=== PATIENT | male | born 1945 | race Caucasian/White ===

== ENCOUNTER 2016-05-29 14:11 | Inpatient (IN) | payer OTHER ==
[~2016-05-29] VITALS: Ht 167.6 cm; Wt 95.3 kg
[2016-05-29] MEDS ORDERED: MoRPHine SULFATE 10 MG/ML CARP/VIAL IV STA (14:49)
[2016-05-29] MEDS ORDERED: ONDANSETRON INJ 2 MG/ML 2 ML VIAL IV STA (14:49)
[2016-05-29] MEDS ORDERED: SODIUM CHLORIDE 0.9% 500ML 500 ML IV STA (14:49)
[2016-05-29] MEDS ORDERED: NITROGLYCERIN 0.4 MG SL PER TAB CHARGE SL PRN ×2 (15:00→18:15)
--- NOTE | 2016-05-29 15:23 | DIAGNOSTIC IMAGING REPORT ---
CHEST ONE VIEW PORTABLE CLINICAL HISTORY: Chest and epigastric pain. Hypertension. COMPARISON STUDY: No previous studies for comparison. FINDINGS: There are median sternotomy wires. This study is mildly compromised by motion artifact. Moderate enlargement of the cardiac silhouette is noted. There is no evidence of pulmonary edema. No lobar consolidation is present. IMPRESSION: 1. No acute findings identified. 2. Moderate cardiomegaly. Electronically signed by: Stanley Granados M.D. 05/29/2016 3:21 PM Dictated Date/Time: 05/29/2016 3:20 PM
[2016-05-29 15:33] LABS: ISTAT CREATININE 0.7 mg/dl (0.6-1.3); ISTAT HEMOGLOBIN 15.6 g/dl (14.0-18.0); ISTAT IONIZED CALCIUM 1.17 mmol/l (1.12-1.32)
[2016-05-29 15:56] LABS: HEMATOCRIT 44.9 % (42-52); MEAN CELL VOLUME 82.5 fL (80-100); MEAN CORPUSCULAR HEMOGLOBIN 28.3 pg (25-34); MEAN CORPUSCULAR HGB CONC 34.3 g/dl (32-36); MEAN PLATELET VOLUME 9.9 fL (7.4-10.4); PLATELET COUNT 203 K/uL (130-400); RED BLOOD COUNT 5.44 M/uL (4.7-6.1); WHITE BLOOD COUNT 17.62 K/uL (4.8-10.8)
[2016-05-29] MEDS ORDERED: OPTIRAY 320 IV PRN (16:00)
[2016-05-29 16:02] LABS: URINE APPEARANCE CLEAR (CLEAR); URINE BILIRUBIN NEG (NEG); URINE COLOR YELLOW; URINE EPITHELIAL CELL AUTO 0-5 /lpf (0-5); URINE NITRITE NEG (NEG); URINE SPECIFIC GRAVITY 1.017 (1.000-1.030); UROBILINOGEN NEG (NEG); ZZUR CULT IF INDIC CLEAN CATCH YES
[2016-05-29 16:03] LABS: MANUAL MICROSCOPIC REQUIRED? NO; REVIEW REQ? NO
[2016-05-29 16:13] LABS: ALT/SGPT 33 U/L (12-78); BLOOD UREA NITROGEN 15 mg/dl (7-18); BUN/CREATININE RATIO 16.9 (10-20); CALCIUM 9.8 mg/dl (8.5-10.1); CARBON DIOXIDE 23 mmol/L (21-32); CHLORIDE 105 mmol/L (98-107); CREATININE 0.87 mg/dl (0.60-1.40); GLUCOSE 115 mg/dl (70-99); SODIUM 140 mmol/L (136-145)
[2016-05-29 16:16] LABS: BASO % 0.1 %; BASO ABS # 0.01 K/uL (0-0.2); COMPLETE YES; IG% 0.2 %; LYMPH % 4.1 %; LYMPH ABS # 0.72 K/uL (1.2-3.4); MONO % 6.5 %; NEUT % 89.1 %
[2016-05-29] MEDS ORDERED: ASPI81TA28 PO (16:17)
[2016-05-29] MEDS ORDERED: FINA5TAB PO (16:17)
[2016-05-29] MEDS ORDERED: FLM4 PO (16:17)
[2016-05-29] MEDS ORDERED: CARV6.25 PO (16:17)
[2016-05-29] MEDS ORDERED: POTA20TA16 PO (16:17)
[2016-05-29] MEDS ORDERED: CYAN500T PO (16:17)
[2016-05-29 16:18] LABS: ALKALINE PHOSPHATASE 65 U/L (45-117); AST/SGOT 19 U/L (15-37)
--- NOTE | 2016-05-29 16:22 | DIAGNOSTIC IMAGING REPORT ---
CT ANGIOGRAM OF THE CHEST, ABDOMEN, AND PELVIS COMBO CLINICAL HISTORY: Atypical chest pain. Back pain. Generalized abdominal pain. COMPARISON STUDY: Chest x-ray dated 05/29/2016. TECHNIQUE: Before and following the IV administration of 116 cc of Optiray 320, CT angiogram of the chest, abdomen, and pelvis was performed from the thoracic inlet to the proximal femora. Images are reviewed in the axial, sagittal, and coronal planes. 3-D MIPS images are created and assessed. IV contrast was administered without complication. Automated dose control exposure was utilized. CT DOSE: 3148.41 mGy.cm FINDINGS: CHEST: Thyroid: Imaged portions of the thyroid gland are normal in size and attenuation. Thoracic aorta: No intramural hematoma is seen on the unenhanced series. There is mild atherosclerotic calcification of the thoracic aorta, which is normal in caliber and demonstrates standard 3-vessel arch anatomy. No dissection is seen. The arch vessels are widely patent. Pulmonary vasculature: The pulmonary trunk is normal in caliber. There are no filling defects identified in the central pulmonary vessels to indicate pulmonary embolus. Note that this examination was not protocoled for evaluation of the pulmonary arteries. Heart: The patient is status post midline sternotomy. The heart is enlarged and without pericardial effusion. The coronary arteries are calcified. Lungs and pleural spaces: There is no airspace consolidation or pleural effusion. Scattered calcified granulomas are identified. There is a 2 mm right lower lobe pulmonary nodule seen on image #142 of the unenhanced series. There is a 5 mm nodular focus of pleural thickening seen in the right middle lobe along the minor fissure on image #122. A 3 mm right lower lobe nodule seen on image #162. The trachea and central airways are clear. Mediastinum: There is no mediastinal lymphadenopathy. Shirley: Clear. Axillae: There is no axillary lymphadenopathy. Bony thorax: The skeletal structures are osteopenic. No lytic or blastic lesions are identified. Arthritic change is noted in the shoulders. ABDOMEN AND PELVIS: Liver: The contrast-enhanced liver is enlarged, measuring 19.4 cm in length. The liver demonstrates diffusely diminished attenuation consistent with hepatic steatosis. Fatty sparing is seen adjacent to the gallbladder fossa. There is no intrahepatic biliary ductal dilatation. The main portal veins appear patent. Gallbladder: The gallbladder is distended. No gallbladder wall thickening is identified. Mild stranding is suggested around the gallbladder neck. Spleen: The spleen is mildly enlarged measuring 14.0 cm in length. There is heterogeneous arterial phase enhancement. Pancreas: There is moderate fatty atrophy of the pancreas. Adrenal glands: Unremarkable. Kidneys: No renal calculi are identified on the unenhanced series. The contrast enhanced kidneys demonstrate mild cortical atrophy and are without hydronephrosis. The kidneys enhance symmetrically. A 3.5 cm exophytic cyst arises from the interpolar right kidney. Abdominal aorta and iliac arteries: There is moderate atherosclerotic calcification of the abdominal aorta and iliac arteries which are normal in caliber. The abdominal aorta and iliac vessels are widely patent. No dissection is seen. Major branches of the abdominal aorta: The celiac trunk and inferior mesenteric arteries are widely patent. The origin of the superior mesenteric artery is patent. 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 This is approximately 4.5 cm from the aorta. Hepatic arterial anatomy is conventional. The splenic artery is patent. There is a single left renal artery and 2 right renal arteries. The renal arteries are widely patent. Bowel: There is a small hiatal hernia. The stomach and duodenum otherwise normal in configuration. There is no bowel obstruction. There is mild to moderate colonic diverticulosis without CT evidence of acute diverticulitis. A duodenal diverticulum is noted. The appendix is not identified. Peritoneum: There is no intraperitoneal free air or abdominal ascites. Lymphadenopathy: None. Pelvic viscera: The prostate gland is enlarged and heterogeneous, measuring 6.1 cm in transverse diameter. The bladder wall appears thickened and trabeculated consistent with chronic outlet obstruction. There is a moderate fat-containing left inguinal hernia. Skeletal structures: The skeletal structures are osteopenic. There is moderate lumbosacral spondylosis. There are bilateral pars defects L5. No anterolisthesis is seen L5-S1. No lytic or blastic lesions are seen. Advanced arthritic change is present in the hips, left greater than right. IMPRESSION: 1. There is no aneurysm or dissection identified involving the thoracic or abdominal aorta. 2. There is no airspace consolidation or pleural effusion. 3. Cardiomegaly. 4. There are scattered indeterminant but low suspicion pulmonary and pleural-based nodules measuring up to 5 mm. These can be followed as per the Fleischner criteria. See below. 5. The gallbladder is distended and mild inflammatory stranding is questioned around the gallbladder neck. Correlation with serum bilirubin levels is recommended. If further assessment of the gallbladder is desired then ultrasound would be appropriate. 6. Mild to moderate colonic diverticulosis without CT evidence of acute epiglottis. 7. 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 8. The prostate gland is markedly enlarged and heterogeneous and there is evidence of chronic bladder outlet obstruction. Correlation with serum PSA levels is recommended. 9. Hepatomegaly and hepatic steatosis. 10. Mild splenomegaly. 11. Additional findings as above. Electronically signed by: Alcon Sauceda M.D. 05/29/2016 4:20 PM Dictated Date/Time: 05/29/2016 4:02 PM
[2016-05-29] MEDS ORDERED: PIPERACILLIN/TAZOBACTAM 4.5 GM/100ML D5W IV STA (17:12)
[2016-05-29] MEDS ORDERED: ACETAMINOPHEN 325 MG TAB PO PRN (18:15)
[2016-05-29] MEDS ORDERED: ONDANSETRON INJ 2 MG/ML 2 ML VIAL IV PRN (18:15)
[2016-05-29] MEDS ORDERED: MoRPHine SULFATE 4 MG/ML 1 ML CARP\\VIAL IV PRN (18:30)
--- NOTE | 2016-05-29 18:43 | History and Physical ---
History & Physical Date & Time of Service: May 29, 2016 at 18:29 Chief Complaint: Pain In Back, Chest And Stomach Primary Care Physician: Frida Alvarez C.R.N.P. History of Present Illness Source: patient, hospital records Patient seen and examined. 70 year old male with PMHx of CAD s/p CABG presents to the ED complaining of abdominal pain since last night. Patient is a poor historian but reports he has been eating differently to try to loose weight, last night he late ate at night but just a fruit bar he said then later that night he started with a gnawing feeling in his RUQ with associated nausea He rates the pain as a 5/10. He states the pain migrated across his abdomen and into his chest and then started to radiate into his back. He states that this caused him to come to the ED. He denies fevers, chills, URI symptoms, SOB, palpitations, vomiting, diarrhea, dysuria, calf pain and edema. Reports he has not had similar symptoms in the past. He states he gets his medical care [facility]. In the ED patient is hypertensive, VS are otherwise stable, wbc count is 17K, CTA is negative for aortic dissection but shows gallbladder disease. ED spoke with surgery who requested general medicine admission. Patient is resting comfortably. Patient will be admitted for further workup and treatment. Past Medical/Surgical History Medical Problems: (1) A-fib Status: Chronic (2) CAD (coronary artery disease) Status: Chronic (3) S/P CABG x 3 Status: Resolved Surgical Problems: (1) S/P CABG x 3 Status: Chronic Family History Patient reports no known family medical history. Social History Smoking Status: Never Smoker Alcohol Use: none Housing status: lives alone Occupational Status: retired Multi-Drug Resistant Organisms History of MDRO: No Allergies Coded Allergies: No Known Allergies (Unverified , 05/29/16) Home Medications Scheduled Aspirin (Aspirin Ec), 81 MG PO DAILY Carvedilol (Coreg), 0.5 TAB PO BID Cyanocobalamin (Vitamin B-12), 500 MCG PO BID Finasteride (Proscar), 5 MG PO QAM Potassium Ext Rel (Klor-Con), 20 MEQ PO BID Tamsulosin HCl (Tamsulosin HCl), 0.8 MG PO QPM Review of Systems See above for pertinent positives & negatives. A total of 10 systems reviewed and were otherwise negative. Physical Exam Vital Signs Date Time Temp Pulse Resp B/P Pulse Ox O2 Delivery O2 Flow Rate FiO2 05/29/16 17:56 76 15 192/92 94 Room Air 05/29/16 16:07 67 21 190/88 95 Room Air 05/29/16 15:27 71 05/29/16 15:20 18 159/89 05/29/16 14:54 67 16 155/97 97 Room Air 05/29/16 14:21 36.6 63 20 206/99 97 Room Air General Appearance: + pertinent finding (WD/WN 70 year old male lying in bed in NAD ) Head: normocephalic, atraumatic Eyes: PERRL, sclerae normal ENT: hearing grossly normal, pharynx normal Neck: supple, no JVD Respiratory/Chest: chest non-tender, lungs clear, normal breath sounds, no respiratory distress, no accessory muscle use Cardiovascular: regular rate, rhythm, no edema, no gallop, no JVD, no murmur, normal peripheral pulses Abdomen/GI: normal bowel sounds, soft, + tenderness (RUQ, +mchugh's sign ) Back: normal inspection, no muscle spasm Extremities/Musculoskelatal: no calf tenderness, normal capillary refill, no pedal edema Neurologic/Psych: alert, oriented x 3, + pertinent finding (no focal deficits noted on gross exam ) Skin: normal color, warm/dry Lymphatic: no adenopathy Diagnostics Laboratory Results Results Past 24 Hours Test 05/29/16 15:15 05/29/16 15:18 05/29/16 15:20 Range/Units Urine Color YELLOW Urine Appearance CLEAR CLEAR Urine pH 5.0 4.5-7.5 Urine Specific [place] 1.017 1.000-1.030 Urine Protein NEG NEG Urine Glucose (UA) NEG NEG Urine Ketones NEG NEG Urine Occult Blood NEG NEG Urine Nitrite NEG NEG Urine Bilirubin NEG NEG Urine Urobilinogen NEG NEG Urine Leukocyte Esterase MODERATE NEG Urine WBC (Auto) >30 0-5 /hpf Urine RBC (Auto) 0-4 0-4 /hpf Urine Hyaline Casts (Auto) 1-5 0-5 /lpf Urine Epithelial Cells (Auto) 0-5 0-5 /lpf Urine Bacteria (Auto) 2+ NEG Bedside Hemoglobin 15.6 14.0-18.0 g/dl Bedside Hematocrit 46 42-52 % Bedside Sodium 140 135-144 mEq/L Bedside Potassium 4.1 3.3-5.0 mEq/L Bedside Chloride 103 101-112 mEq/L Bedside Total CO2 24 24-31 mEq/l Anion Gap 18.0 12.0 3-11 mmol/L Bedside Blood Urea Nitrogen 16 7-18 mg/dl Bedside Creatinine 0.7 0.6-1.3 mg/dl Bedside Glucose (other) 120 70-99 mg/dl Bedside Ionized Calcium (Brit) 1.17 1.12-1.32 mmol/l White Blood Count 17.62 4.8-10.8 K/uL Red Blood Count 5.44 4.7-6.1 M/uL Hemoglobin 15.4 14.0-18.0 g/dL Hematocrit 44.9 42-52 % Mean Corpuscular Volume 82.5 80-100 fL Mean Corpuscular Hemoglobin 28.3 25-34 pg Mean Corpuscular Hemoglobin Concent 34.3 32-36 g/dl Platelet Count 203 130-400 K/uL Mean Platelet Volume 9.9 7.4-10.4 fL Neutrophils (%) (Auto) 89.1 % Lymphocytes (%) (Auto) 4.1 % Monocytes (%) (Auto) 6.5 % Eosinophils (%) (Auto) 0.0 % Basophils (%) (Auto) 0.1 % Neutrophils # (Auto) 15.70 1.4-6.5 K/uL Lymphocytes # (Auto) 0.72 1.2-3.4 K/uL Monocytes # (Auto) 1.15 0.11-0.59 K/uL Eosinophils # (Auto) 0.00 0-0.5 K/uL Basophils # (Auto) 0.01 0-0.2 K/uL RDW Standard Deviation 40.7 36.4-46.3 fL RDW Coefficient of Variation 13.5 11.5-14.5 % Immature Granulocyte % (Auto) 0.2 % Immature Granulocyte # (Auto) 0.04 0.00-0.02 K/uL Sodium Level 140 136-145 mmol/L Potassium Level 4.0 3.5-5.1 mmol/L Chloride Level 105 98-107 mmol/L Carbon Dioxide Level 23 21-32 mmol/L Blood Urea Nitrogen 15 7-18 mg/dl Creatinine 0.87 0.60-1.40 mg/dl Est Creatinine Clear Calc Drug Dose 94.2 ml/min Estimated GFR () 102.1 Estimated GFR (Non- 88.1 BUN/Creatinine Ratio 16.9 10-20 Random Glucose 115 70-99 mg/dl Calcium Level 9.8 8.5-10.1 mg/dl Total Bilirubin 0.7 0.2-1 mg/dl Direct Bilirubin 0.2 0-0.2 mg/dl Aspartate Amino Transf (AST/SGOT) 19 15-37 U/L Alanine Aminotransferase (ALT/SGPT) 33 12-78 U/L Alkaline Phosphatase 65 45-117 U/L Troponin I < 0.015 0-0.045 ng/ml Total Protein 7.7 6.4-8.2 gm/dl Albumin 4.3 3.4-5.0 gm/dl Lipase 148 73-393 U/L Microbiology Results 05/29/16 Blood Culture, Gonzalo Batch Pending 05/29/16 Blood Culture, Gonzalo Batch Pending 05/29/16 Urine Culture, Received Pending Diagnostic Radiology CTA CHEST Per radiologist read: IMPRESSION: 1. There is no aneurysm or dissection identified involving the thoracic or abdominal aorta. 2. There is no airspace consolidation or pleural effusion. 3. Cardiomegaly. 4. There are scattered indeterminant but low suspicion pulmonary and pleural-based nodules measuring up to 5 mm. These can be followed as per the Fleischner criteria. See below. 5. The gallbladder is distended and mild inflammatory stranding is questioned around the gallbladder neck. Correlation with serum bilirubin levels is recommended. If further assessment of the gallbladder is desired then ultrasound would be appropriate. 6. Mild to moderate colonic diverticulosis without CT evidence of acute epiglottis. 7. 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 8. The prostate gland is markedly enlarged and heterogeneous and there is evidence of chronic bladder outlet obstruction. Correlation with serum PSA levels is recommended. 9. Hepatomegaly and hepatic steatosis. 10. Mild splenomegaly. 11. Additional findings as above. CXR Per radiologist read: IMPRESSION: 1. No acute findings identified. 2. Moderate cardiomegaly. EKG Sinus Rhythmn with PVCs 63 BPM, QTc 392 Impression Assessment and Plan 70 year old male presents to the ED complaining of RUQ pain since last night, CT chest consistent with cholecystitis ACUTE CHOLECYSTITIS -Admit to tele -WBC count 17K, CT consistent with cholecystitis -gallbladder US is pending -obtain blood cultures, lactic acid -LFTs unremarkable -General surgery consulted and aware of patient input appreciated -Cardiology consult placed for preop clearance input appreciated -empirically treat for infection with Zosyn -IVF hydration -npo for now -CBC, CMP, Mg in AM HYPERTENSIVE URGENCY -CTA chest negative for aortic dissection -? uncontrolled at baseline versus pain/stress induced -pain control with morphine - [place] prescription drug monitoring program reviewed. -continue Coreg BID -hydralazine prn -serial Blair -monitor closely UTI -culture pending -empiric Zosyn for now CAD S/P CABG -continue BB -hold Aspirin for possible surgery -obtain records from [facility] -Cardiology consult for preop clearance AFIB -per patient -currently in NSR -not on anticoagulation BPH -continue Flomax, Proscar LUNG NODULE -incidental finding -followup with PCP [facility] MES[facility]ERY STENOSIS -high grade, on CTA DVT PROPHYLAXIS: SCDs RE: possible surgery CODE STATUS: FULL CODE DISPO:In my clinical judgment this beneficiary meets acute admission criteria, established by [facility], that includes being hospitalized through two midnights. Discharge planning eval Patient seen in collaboration with Dr. Starkey Attending Note: Patient is a 70 yr old male with PMH of cad s/p CABG and other comorbidities presents with history of RUQ abdominal pain radiating to back since yesterday. Patient is a poor historian. Associated symptoms-nausea. Denies any other relevant history. 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 Physical Exam: Vitals signs as noted above General Appearance:Obese, no apparent distress Head: normocephalic, Atraumatic Eyes: normal inspection, EOMI, PERRLA Respiratory/Chest: Normal breath sounds, CTA, No accessory muscle use Cardiovascular: S1, S2, NSR, No murmur Abdomen/GI:Soft, RUQ tender, BS present, No guarding/rigidity Extremities/Musculoskeletal:normal inspection, no calf tenderness, edema Neurologic/Psych:AAOX3, grossly no focal neurological deficits Skin:normal color,warm, erythematous rash on chest, back Assessment and Plan: Sepsis : Secondary to Acute cholecystics and possible UTI IV fluids, IV antibiotics Blood cultures Surgery consulted Cardiology eval for preop clearance given history of CAD S/P CABG Recheck lactate levels after IV Fluid bolus Pain control I personally reviewed the record. Patient is interviewed and examined at bedside. Patient's care is coordinated with Tiffany Miner PA-C. Please refer to the documentation above for details of patient's presentation and for discussion of other issues. VTE Prophylaxis VTE Risk Assessment Done? Y/N: Yes Risk Level: Moderate
[2016-05-29] MEDS ORDERED: PIPERACILL/TAZOBAC CONSULT ACTIVE PRN (18:45)
[2016-05-29] MEDS ORDERED: HydrALAZINE HCL 20 MG/ML VIAL IV. PRN (19:00)
--- NOTE | 2016-05-29 19:07 | DIAGNOSTIC IMAGING REPORT ---
ULTRASOUND RIGHT UPPER QUADRANT ABDOMEN CLINICAL HISTORY: Generalized abdominal pain. Abnormal gallbladder suggested by CT. COMPARISON STUDY: Abdominal CT dated 05/29/2016. TECHNIQUE: Real-time, grayscale, and color flow sonography of the right upper quadrant of the abdomen was performed. Images are reviewed in the transverse and longitudinal planes. FINDINGS: Liver: The liver is mildly enlarged measuring 20.5 cm in length. The liver demonstrates heterogeneously increased echotexture consistent with hepatic steatosis. Fatty sparing is seen adjacent to the gallbladder fossa. There is no intrahepatic biliary ductal dilatation. The main portal vein is patent. Gallbladder: The gallbladder is distended measuring 14.2 cm in length, and the gallbladder wall is mildly thickened measuring up to 4 mm. Sludge is identified. A 6 mm stone is suggested in the region of the gallbladder neck. No pericholecystic fluid is seen. A sonographic Mccollum's sign is present. The common bile duct measures up to 0.4 cm in diameter. Pancreas: Visualized portions of the pancreatic head and body are normal in appearance. The splenic vein is patent. Right kidney: Survey images of the right kidney demonstrate mild cortical atrophy. There is no hydronephrosis. A 3.4 cm exophytic cyst is noted. Ascites: None. IMPRESSION: 1. Biliary sludge and cholelithiasis. Sonographic findings are consistent with acute cholecystitis. Surgical assessment is advised. 2. There is no intra or extrahepatic biliary ductal dilatation. 3. Hepatomegaly and hepatic steatosis. Electronically signed by: Alcon Sauceda M.D. 05/29/2016 7:05 PM Dictated Date/Time: 05/29/2016 7:02 PM
[2016-05-29 20:25] VITALS: BP 166/103; PULSE 63; TEMP 37; O2SAT 94
--- NOTE | 2016-05-29 20:55 | EMERGENCY ROOM VISIT NOTE ---
History Report prepared by Oscar[place]scott: Lesley Taylor Under the Supervision of: Dr. Eren Dooley D.O. First contact with patient: 14:30 Chief Complaint: ILLNESS Stated Complaint: PAIN IN BACK, CHEST AND STOMACH History of Present Illness The patient is a 70 year old male who presents to the Emergency Room with complaints of persistent back pain that began early this morning, about 11 hours ago. The patient notes that he was having difficulty sleeping due to his pain, which would worsen when laying on his side. He describes the pain as an ache. He also complains of substernal chest pain and epigastric abdominal pain which has been coming and going since this morning. He states that he feels bloated and nauseated. [facility] and was referred to the emergency room today. The patient notes that he has been breathing somewhat heavier over the past several days. When he has episodes of chest pain, he gets slightly more short of breath. Denies any arm or jaw pain. His last bowel movement was this morning. He has a history of a preventative triple bypass about 20 months ago. He did not have any symptoms at that time other than the fact that he was feeling tired. The patient has a history of a- fib and used to be on Coumadin, but was taken off of it because it made him feel tired. Pt denies headache, change in vision, fevers, vomiting, diarrhea, pain with urination, and melena. He states that he does not have a history of blood clots, aorta problems, hypertension or high cholesterol. Source of History: patient Onset: this morning about 11 hours ago Position: back Quality: ache Timing: other (persistent) Modifying Factors (Worsening): other (laying on side) Associated Symptoms: + SOB, + abdominal pain, + chest pain, + nausea, No diarrhea, No fevers, No headache, No melena, No urinary symptoms, No vomiting Review of Systems See HPI for pertinent positives & negatives. A total of 10 systems reviewed and were otherwise negative. Past Medical & Surgical Medical Problems: (1) A-fib (2) CAD (coronary artery disease) (3) Cholecystitis (4) Hypertensive urgency (5) S/P CABG x 3 Surgical Problems: (1) S/P CABG x 3 Family History No pertinent family history stated. Social History Marital Status: single Occupation Status: employed Current/Historical Medications Scheduled Aspirin (Aspirin Ec), 81 MG PO DAILY Carvedilol (Coreg), 0.5 TAB PO BID Cyanocobalamin (Vitamin B-12), 500 MCG PO BID Finasteride (Proscar), 5 MG PO QAM Potassium Ext Rel (Klor-Con), 20 MEQ PO BID Tamsulosin HCl (Tamsulosin HCl), 0.8 MG PO QPM Allergies Coded Allergies: No Known Allergies (Unverified , 05/29/16) Physical Exam Vital Signs Date Time Temp Pulse Resp B/P Pulse Ox O2 Delivery O2 Flow Rate FiO2 05/29/16 17:56 76 15 192/92 94 Room Air 05/29/16 16:07 67 21 190/88 95 Room Air 05/29/16 15:27 71 05/29/16 15:20 18 159/89 05/29/16 14:54 67 16 155/97 97 Room Air 05/29/16 14:21 36.6 63 20 206/99 97 Room Air Physical Exam GENERAL: Disheveled, laying in bed, nontoxic, no acute distress. EYE EXAM: normal conjunctiva, PERRL and EOM's grossly intact OROPHARYNX: no exudate, no erythema, lips, buccal mucosa, and tongue normal and mucous membranes are moist NECK: supple, no nuchal rigidity, no adenopathy, non-tender LUNGS: Clear to auscultation. Normal chest wall mechanics HEART: no murmurs, S1 normal and S2 normal CHEST: Previous midline sternal incision. ABDOMEN: abdomen soft, tender to palpation right upper and mid abdomen, normo- active bowel sounds, no masses, no rebound or guarding. BACK: Back is symmetrical on inspection and there is no deformity, no midline tenderness, no CVA tenderness. SKIN: no rashes and no bruising UPPER EXTREMITIES: upper extremities are grossly normal. Radial pulses equal bilaterally. LOWER EXTREMITIES: No pitting edema. NEURO EXAM: Normal sensorium, cranial nerves II-XII grossly intact, normal speech, no gross weakness of arms, no gross weakness of legs. Medical Decision & Procedures ER Provider Diagnostic Interpretation: Xray results per the radiologist and my interpretation. Other results have been interpreted by the radiologist and reviewed by me. CHEST ONE VIEW PORTABLE CLINICAL HISTORY: Chest and epigastric pain. Hypertension. COMPARISON STUDY: No previous studies for comparison. FINDINGS: There are median sternotomy wires. This study is mildly compromised by motion artifact. Moderate enlargement of the cardiac silhouette is noted. There is no evidence of pulmonary edema. No lobar consolidation is present. IMPRESSION: 1. No acute findings identified. 2. Moderate cardiomegaly. Electronically signed by: Stanley Granados M.D. 05/29/2016 3:21 PM Dictated Date/Time: 05/29/2016 3:[address] ANGIOGRAM OF THE CHEST, ABDOMEN, AND PELVIS COMBO CLINICAL HISTORY: Atypical chest pain. Back pain. Generalized abdominal pain. COMPARISON STUDY: Chest x-ray dated 05/29/2016. TECHNIQUE: Before and following the IV administration of 116 cc of Optiray 320, CT angiogram of the chest, abdomen, and pelvis was performed from the thoracic inlet to the proximal femora. Images are reviewed in the axial, sagittal, and coronal planes. 3-D MIPS images are created and assessed. IV contrast was administered without complication. Automated dose control exposure was utilized. CT DOSE: 3148.41 mGy.cm FINDINGS: CHEST: Thyroid: Imaged portions of the thyroid gland are normal in size and attenuation. Thoracic aorta: No intramural hematoma is seen on the unenhanced series. There is mild atherosclerotic calcification of the thoracic aorta, which is normal in caliber and demonstrates standard 3-vessel arch anatomy. No dissection is seen. The arch vessels are widely patent. Pulmonary vasculature: The pulmonary trunk is normal in caliber. There are no filling defects identified in the central pulmonary vessels to indicate pulmonary embolus. Note that this examination was not protocoled for evaluation of the pulmonary arteries. Heart: The patient is status post midline sternotomy. The heart is enlarged and without pericardial effusion. The coronary arteries are calcified. Lungs and pleural spaces: There is no airspace consolidation or pleural effusion. Scattered calcified granulomas are identified. There is a 2 mm right lower lobe pulmonary nodule seen on image #142 of the unenhanced series. There is a 5 mm nodular focus of pleural thickening seen in the right middle lobe along the minor fissure on image #122. A 3 mm right lower lobe nodule seen on image #162. The trachea and central airways are clear. Mediastinum: There is no mediastinal lymphadenopathy. Shirley: Clear. Axillae: There is no axillary lymphadenopathy. Bony thorax: The skeletal structures are osteopenic. No lytic or blastic lesions are identified. Arthritic change is noted in the shoulders. ABDOMEN AND PELVIS: Liver: The contrast-enhanced liver is enlarged, measuring 19.4 cm in length. The liver demonstrates diffusely diminished attenuation consistent with hepatic steatosis. Fatty sparing is seen adjacent to the gallbladder fossa. There is no intrahepatic biliary ductal dilatation. The main portal veins appear patent. Gallbladder: The gallbladder is distended. No gallbladder wall thickening is identified. Mild stranding is suggested around the gallbladder neck. Spleen: The spleen is mildly enlarged measuring 14.0 cm in length. There is heterogeneous arterial phase enhancement. Pancreas: There is moderate fatty atrophy of the pancreas. Adrenal glands: Unremarkable. Kidneys: No renal calculi are identified on the unenhanced series. The contrast enhanced kidneys demonstrate mild cortical atrophy and are without hydronephrosis. The kidneys enhance symmetrically. A 3.5 cm exophytic cyst arises from the interpolar right kidney. Abdominal aorta and iliac arteries: There is moderate atherosclerotic calcification of the abdominal aorta and iliac arteries which are normal in caliber. The abdominal aorta and iliac vessels are widely patent. No dissection is seen. Major branches of the abdominal aorta: The celiac trunk and inferior mesenteric arteries are widely patent. The origin of the superior mesenteric artery is patent. 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 This is approximately 4.5 cm from the aorta. Hepatic arterial anatomy is conventional. The splenic artery is patent. There is a single left renal artery and 2 right renal arteries. The renal arteries are widely patent. Bowel: There is a small hiatal hernia. The stomach and duodenum otherwise normal in configuration. There is no bowel obstruction. There is mild to moderate colonic diverticulosis without CT evidence of acute diverticulitis. A duodenal diverticulum is noted. The appendix is not identified. Peritoneum: There is no intraperitoneal free air or abdominal ascites. Lymphadenopathy: None. Pelvic viscera: The prostate gland is enlarged and heterogeneous, measuring 6.1 cm in transverse diameter. The bladder wall appears thickened and trabeculated consistent with chronic outlet obstruction. There is a moderate fat-containing left inguinal hernia. Skeletal structures: The skeletal structures are osteopenic. There is moderate lumbosacral spondylosis. There are bilateral pars defects L5. No anterolisthesis is seen L5-S1. No lytic or blastic lesions are seen. Advanced arthritic change is present in the hips, left greater than right. IMPRESSION: 1. There is no aneurysm or dissection identified involving the thoracic or abdominal aorta. 2. There is no airspace consolidation or pleural effusion. 3. Cardiomegaly. 4. There are scattered indeterminant but low suspicion pulmonary and pleural-based nodules measuring up to 5 mm. These can be followed as per the Fleischner criteria. See below. 5. The gallbladder is distended and mild inflammatory stranding is questioned around the gallbladder neck. Correlation with serum bilirubin levels is recommended. If further assessment of the gallbladder is desired then ultrasound would be appropriate. 6. Mild to moderate colonic diverticulosis without CT evidence of acute epiglottis. 7. 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 8. The prostate gland is markedly enlarged and heterogeneous and there is evidence of chronic bladder outlet obstruction. Correlation with serum PSA levels is recommended. 9. Hepatomegaly and hepatic steatosis. 10. Mild splenomegaly. 11. Additional findings as above. Electronically signed by: Alcon Sauceda M.D. 05/29/2016 4:20 PM Dictated Date/Time: 05/29/2016 4:02 PM Laboratory Results 05/29/16 15:20 Red Blood Count 5.44, Mean Corpuscular Volume 82.5, Mean Corpuscular Hemoglobin 28.3, Mean Corpuscular Hemoglobin Concent 34.3, Mean Platelet Volume 9.9, Neutrophils (%) (Auto) 89.1, Lymphocytes (%) (Auto) 4.1, Monocytes (%) (Auto) 6.5, Eosinophils (%) (Auto) 0.0, Basophils (%) (Auto) 0.1, Neutrophils # (Auto) 15.70, Lymphocytes # (Auto) 0.72, Monocytes # (Auto) 1.15, Eosinophils # (Auto) 0.00, Basophils # (Auto) 0.01 05/29/16 15:20 Test 05/29/16 15:15 05/29/16 15:18 05/29/16 15:20 Urine Color YELLOW Urine Appearance CLEAR (CLEAR) Urine pH 5.0 (4.5-7.5) Urine Specific [place] 1.017 (1.000-1.030) Urine Protein NEG (NEG) Urine Glucose (UA) NEG (NEG) Urine Ketones NEG (NEG) Urine Occult Blood NEG (NEG) Urine Nitrite NEG (NEG) Urine Bilirubin NEG (NEG) Urine Urobilinogen NEG (NEG) Urine Leukocyte Esterase MODERATE (NEG) Urine WBC (Auto) >30 /hpf (0-5) Urine RBC (Auto) 0-4 /hpf (0-4) Urine Hyaline Casts (Auto) 1-5 /lpf (0-5) Urine Epithelial Cells (Auto) 0-5 /lpf (0-5) Urine Bacteria (Auto) 2+ (NEG) Bedside Hemoglobin 15.6 g/dl (14.0-18.0) Bedside Hematocrit 46 % (42-52) Bedside Sodium 140 mEq/L (135-144) Bedside Potassium 4.1 mEq/L (3.3-5.0) Bedside Chloride 103 mEq/L (101-112) Bedside Total CO2 24 mEq/l (24-31) Bedside Blood Urea Nitrogen 16 mg/dl (7-18) Bedside Creatinine 0.7 mg/dl (0.6-1.3) Bedside Glucose (other) 120 mg/dl (70-99) Bedside Ionized Calcium (Brit) 1.17 mmol/l (1.12-1.32) White Blood Count 17.62 K/uL (4.8-10.8) Red Blood Count 5.44 M/uL (4.7-6.1) Hemoglobin 15.4 g/dL (14.0-18.0) Hematocrit 44.9 % (42-52) Mean Corpuscular Volume 82.5 fL (80-100) Mean Corpuscular Hemoglobin 28.3 pg (25-34) Mean Corpuscular Hemoglobin Concent 34.3 g/dl (32-36) Platelet Count 203 K/uL (130-400) Mean Platelet Volume 9.9 fL (7.4-10.4) Neutrophils (%) (Auto) 89.1 % Lymphocytes (%) (Auto) 4.1 % Monocytes (%) (Auto) 6.5 % Eosinophils (%) (Auto) 0.0 % Basophils (%) (Auto) 0.1 % Neutrophils # (Auto) 15.70 K/uL (1.4-6.5) Lymphocytes # (Auto) 0.72 K/uL (1.2-3.4) Monocytes # (Auto) 1.15 K/uL (0.11-0.59) Eosinophils # (Auto) 0.00 K/uL (0-0.5) Basophils # (Auto) 0.01 K/uL (0-0.2) RDW Standard Deviation 40.7 fL (36.4-46.3) RDW Coefficient of Variation 13.5 % (11.5-14.5) Immature Granulocyte % (Auto) 0.2 % Immature Granulocyte # (Auto) 0.04 K/uL (0.00-0.02) Anion Gap 12.0 mmol/L (3-11) Est Creatinine Clear Calc Drug Dose 94.2 ml/min Estimated GFR () 102.1 Estimated GFR (Non- 88.1 BUN/Creatinine Ratio 16.9 (10-20) Calcium Level 9.8 mg/dl (8.5-10.1) Total Bilirubin 0.7 mg/dl (0.2-1) Direct Bilirubin 0.2 mg/dl (0-0.2) Aspartate Amino Transf (AST/SGOT) 19 U/L (15-37) Alanine Aminotransferase (ALT/SGPT) 33 U/L (12-78) Alkaline Phosphatase 65 U/L (45-117) Troponin I < 0.015 ng/ml (0-0.045) Total Protein 7.7 gm/dl (6.4-8.2) Albumin 4.3 gm/dl (3.4-5.0) Lipase 148 U/L (73-393) Laboratory results per my review. Medications Administered Medications (Trade) Dose Ordered Sig/Michael Route Start Time Stop Time Status Last Admin Dose Admin Nitroglycerin (Nitrostat Tab) 0.4 mg Q5M PRN SL 05/29/16 15:00 05/29/16 19:47 DC 05/29/16 15:10 0.4 MG Ondansetron HCl 4 mg 4 mg NOW STAT IV 05/29/16 14:49 05/29/16 14:51 DC 05/29/16 15:28 4 MG Sodium Chloride (Nss 500ml) 500 ml @ 999 mls/hr Q31M STAT IV 05/29/16 14:49 05/29/16 15:19 DC 05/29/16 15:30 999 MLS/HR Morphine Sulfate (MoRPHine SULFATE INJ) 6 mg NOW STAT IV 05/29/16 14:49 05/29/16 14:52 DC 05/29/16 15:28 6 MG Piperacillin Sod/ Tazobactam Sod (Zosyn Iv) 4.5 gm NOW STAT IV 05/29/16 17:12 05/29/16 17:14 DC 05/29/16 17:54 4.5 GM ECG Indication: abdominal pain, chest pain, back/shoulder pain Rate (beats per minute): 63 Rhythm: sinus rhythm Findings: PVC, Q waves (Inferior), other (normal axis) ED Course ED COURSE: Vital signs were reviewed and showed hypertension. The patients medical record was reviewed The above diagnostic studies were performed and reviewed. ED treatments and interventions as stated above. 1432: The patient was evaluated in room B4. A complete history and physical examination was performed. 1449: Ordered Morphine Sulfate 6 mg IV, NSS 500 ml @ 999 mls/hr IV, Zofran Inj 4 mg IV. 1500: Ordered Nitroglycerin 0.4 mg SL. 1506: The patient's blood pressure improved to the 150s. 1706: I reassessed the patient. He states that he does have right upper quadrant pain. 1710: I discussed the case with Dr. Courtney - General Surgery. He recommended that the patient come in to medicine and be given broad spectrum antibiotics. 1712: Ordered Zosyn 4.5 gm IV. 1741: I discussed the case with KERRIE Jerez [facility]. The patient will be evaluated for further management. 1750: Upon reevaluation, the patient is resting comfortably.I discussed my findings with the patient and he understands and agrees with the treatment plan. Based on the patients age, coexisting illnesses, exam and lab findings the decision to treat as an inpatient was made. The patient remained stable while under my care. The patient will be evaluated for further management. Medical Decision Differential diagnoses includes but is not limited to acute coronary syndrome, myocardial infarction, pericarditis, pulmonary embolus, aortic dissection, pneumonia, pneumothorax, musculoskeletal, shingles, esophageal, gastritis, peptic ulcer disease, GERD, gallbladder disease, pancreatitis, small bowel obstruction, acute coronary syndrome, pericarditis, ischemic bowel, irritable bowel disease, irritable bowel syndrome, appendicitis, diverticulitis, malignancy, hernia, urinary tract infection, torsion, perforation, trauma, infectious. Patient is a 70-year-old male that presents to the ER for chest pain radiating through to his back along with abdominal fullness and pain. Initially he was extremity hypertensive with this complaint on April. CT was performed. It did show stranding and fullness of his gallbladder. It'll leukocytosis of 17,000 along with unremarkable BMP, LFTs, bilirubin, troponin and lipase. UA showed esterase along with white cells and +2 bacteria. He does admit to trouble urinating. His bladder was extremely dilated following a CT constantly straight cath was performed and he had over 1000 ML's out. Abdominal pain did improve with this however on reevaluation he was fairly tender in the right upper quadrant. I gave him a dose of Zosyn. This examination with the CT findings to suggest acute cholecystitis. I ordered an ultrasound discussed with general surgery. I then discussed the case with internal medicine per the request for admission. Patient remained stable in the ER. Consults Time Called: 1707 Consulting Physician: Dr. Courtney - General Surgery Returned Call: [phone] I discussed the case with him. He recommended that the patient come in to medicine and be given broad spectrum antibiotics. Additional Consults: Time Called: 1732 Consulted Physician: [facility] Returned Call: [phone] Additional Comments: I discussed the case with her. The patient will be evaluated for further management. Impression Primary Impression: Cholecystitis Additional Impressions: Urinary retention Leukocytosis Precordial chest pain Scribe Attestation The scribe's documentation has been prepared under my direction and personally reviewed by me in its entirety. I confirm that the note above accurately reflects all work, treatment, procedures, and medical decision making performed by me. Departure Information Dispostion Being Evaluated By Hospitalist Referrals Frida Alvarez C.R.NMayelinPMayelin (PCP) Patient Instructions My [facility] Problem Qualifiers Additional Impressions: Leukocytosis Leukocytosis type: bandemia Qualified Codes: D72.825 - Bandemia
[2016-05-29] MEDS: METRONIDAZOLE / NSS 500 MG in PREMIXED NSS 100 ML IV SCH (21:57)
[2016-05-29] MEDS: SODIUM CHLORIDE 0.9% 1000ML 1,000 ML IV SCH (21:57)
[2016-05-29] MEDS: CARVEDILOL 6.25 MG TAB PO SCH (21:57)
[2016-05-29] MEDS: TAMSULOSIN HCL 0.4 MG CAP PO SCH (21:57)
[2016-05-29] MEDS: POTASSIUM CHLORIDE 20 MEQ TABCR PO SCH (21:58)
[2016-05-29] MEDS: PIPERACILL/TAZOBAC IV 4.5 GM in DEXTROSE 5% 100ML IV SCH (21:58)
[2016-05-29] MEDS: CYANOCOBALAMIN 500 MCG TAB (VIT B-12) PO SCH (21:58)
[2016-05-29] MEDS ORDERED: SODIUM CHLORIDE 0.9% 1000ML 1,000 ML IV SCH (22:15)
[2016-05-29 22:19] VITALS: Ht 167.6 cm; Wt 95.3 kg
[2016-05-29 22:38] VITALS: PULSE 97; O2SAT 94
--- NOTE | 2016-05-29 23:08 | CONSULTATION REPORT ---
DATE OF CONSULTATION: 05/29/2016 SUBJECTIVE: I was called earlier this evening by the ER physician on Mr. Valencia, who presented as a poor historian. I obtained a CAT scan of the abdomen and he was found to have acute cholecystitis with a 17,000 white count. Speaking to the ER physician, the patient had some cardiac history in the past. Therefore, I asked him the patient be evaluated by the medical service and I will see him in consultation. The patient is a 70-year-old with a past history of coronary artery disease status post CABG, status post reconstruction of his right hand from a previous injury with flaps from his left lower quadrant. He has had abdominal pain since last night. He states he ate some yogurt, but also had some sausage. He ate late at night. The pain was associated with nausea. He states the pain is probably about 6/10. The pain was in the upper abdomen, going up to his chest and back. This prompted him to come to the Emergency Room where he was evaluated. Initial evaluation in the ER included a CT angiogram to rule out an aortic dissection and showed gallbladder disease. PAST MEDICAL HISTORY: Include atrial fibrillation, coronary artery disease status post CABG x3. FAMILY HISTORY: No known medical history. SOCIAL HISTORY: Never smoker. He lives alone. MEDICATIONS: Reviewed. There is no antiplatelet therapy. PHYSICAL EXAMINATION: GENERAL: As I see him now, he is sitting at the side of the bed, relatively comfortable, although he is exquisitely tender in the right upper quadrant. HEAD: Normocephalic. EYES: PERRLA. The sclerae is nonicteric. CHEST: Midline sternotomy incision. ABDOMEN: Shows some changes from plastic surgery on the left lower quadrant. The patient has exquisite tenderness on right upper quadrant expressed with the exam as negative. Peripherally there is no pedal edema. VITAL SIGNS: When he first came into the Emergency Room showed a blood pressure of 206/99. As I see him in this afternoon on examination his blood pressure is 166/100. He is afebrile, his pulse is 70, respirations anywhere between 15 and 22. LABORATORY: Showed a white count of 17.62 with a left shift, hemoglobin 15.4. Chemistries; there is no elevated liver function test and the lipase is normal. The imaging as stated gallbladder ultrasound confirmed the CAT scan finding which shows biliary sludge and cholelithiasis consistent with acute cholecystitis. There may be a 6 mm stone as suggested in the region of the gallbladder neck. At this point, our recommendation is to give him broad spectrum antibiotics as we have and plan for laparoscopic cholecystectomy, if possible open once his medical is cleared and his hypertension is under control. Risks and complications of the surgery were explained to the patient of bleeding, infection, converting to an open procedure and he would like to proceed accordingly.
[2016-05-30] VITALS (13 sets, daily range): BP systolic 98–155; BP diastolic 62–87; PULSE 50–90; TEMP 36.5–37.6; O2SAT 91–97
[2016-05-30] MEDS: METRONIDAZOLE / NSS 500 MG in PREMIXED NSS 100 ML IV SCH ×2 (05:18→13:00)
[2016-05-30] MEDS: SODIUM CHLORIDE 0.9% 1000ML 1,000 ML IV SCH (05:18)
--- NOTE | 2016-05-30 06:09 | SURGERY PROGRESS NOTE ---
DATE: 05/30/2016 Yobany has CPAP on, he is resting comfortably. His last vitals showed a temperature of 37.2, pulse 82, respirations 18, blood pressure 155/87, O2 sats 91% on room air. He had a temperature spike last night of 37.6. His I\T\O has not been much. His laboratory this morning is pending. The lactic acid on admission was 3, this morning 1.7. His abdominal findings is exquisite tenderness in the right upper quadrant. With this, I suspect the patient should proceed to a laparoscopic cholecystectomy, cholangiogram and will proceed accordingly this morning unless there is contraindication from the medical service.
[2016-05-30 06:44] LABS: HEMATOCRIT 40.9 % (42-52); MEAN CELL VOLUME 83.1 fL (80-100); MEAN CORPUSCULAR HEMOGLOBIN 28.3 pg (25-34); PLATELET COUNT 146 K/uL (130-400); RED BLOOD COUNT 4.92 M/uL (4.7-6.1); WHITE BLOOD COUNT 19.68 K/uL (4.8-10.8)
[2016-05-30 07:17] LABS: BUN/CREATININE RATIO 15.1 (10-20); CALCIUM 8.6 mg/dl (8.5-10.1); CREATININE 0.86 mg/dl (0.60-1.40); MAGNESIUM 1.8 mg/dl (1.8-2.4); POTASSIUM 3.7 mmol/L (3.5-5.1)
[2016-05-30] MEDS: PIPERACILL/TAZOBAC IV 4.5 GM in DEXTROSE 5% 100ML IV SCH ×2 (08:00→17:13)
[2016-05-30] MEDS: POTASSIUM CHLORIDE 20 MEQ TABCR PO SCH ×2 (08:48→21:02)
[2016-05-30] MEDS: CYANOCOBALAMIN 500 MCG TAB (VIT B-12) PO SCH ×2 (08:48→21:03)
[2016-05-30] MEDS: FINASTERIDE 5 MG TAB PO SCH (08:48)
[2016-05-30] MEDS: CARVEDILOL 6.25 MG TAB PO SCH ×2 (08:48→21:02)
--- NOTE | 2016-05-30 10:15 | Progress Note ---
Medicine Progress Note Date & Time of Visit: May 30, 2016 at 09:50. Subjective 70 yo M with CAD s/p CABG in last two years p/w acute urinary retention and acute cholecystitis. He was hypertensive in the ER to 206/99 which resolved to the 150s systolic after morphine, zofran, 1L NS and one dose nitro were given. Coreg was continued and hydralazine ordered PRN-not given overnight. Serial trop (3) were performed and negative. UA showed esterase along with white cells and +2 bacteria. He admitted to trouble urinating. His bladder was extremely dilated following a CT --> straight cath was performed in ER and he had over 1000 ML's out. Abdominal pain did improve with this. Persistent RUQ tenderness with imaging c/w acute cholecystitis. Gen Surg to take him to OR this morning. Zosyn was started for a UTI and BPH meds were continued. He did void this morning. H/o atrial fibrillation of Coumadin as this made him tired in the past-continues on aspirin, which is being held for surgery. Currently in sinus rhythm. 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 Feeling tired and has RUQ pain this morning. Possibly some chills, feels flushed. Last BM was yesterday morning. Ambulatory. Objective Last 8 Hrs Date Time Temp Pulse Resp B/P Pulse Ox O2 Delivery O2 Flow Rate FiO2 05/30/16 08:27 37.0 90 18 124/65 94 Room Air 05/30/16 07:40 Room Air 05/30/16 04:19 CPAP 05/30/16 04:05 37.2 82 18 155/87 91 Room Air Physical Exam: GEN: WNWD, in mild distress, alert and appropriate, frequently yawning and appears fatigued HEENT: NC/AT, normal sclerae CARDIO: reg rate, S1/2 heard without m/g/r LUNGS: CTA bilaterally, no crackles, rales or wheezes, good diaphragmatic excursion, diminished breath sounds ABD: +BS, soft, exquisite TTP in RUQ, non-distended but protuberant, -CVA tenderness BACK: nontender to palpation along SPs and paraspinal musculature EXTREMITY: no LE swelling or edema, extremities are warm and well-perfused NEURO: CN 2-12 grossly intact MUSC: moves all extremities equally, stands and maneuvers on his own, no gross focal deficits. SKIN: warm and dry Laboratory Results: Last 24 Hours Test 05/29/16 15:15 05/29/16 15:18 05/29/16 15:20 05/29/16 21:07 Urine Color YELLOW Urine Appearance CLEAR Urine pH 5.0 Urine Specific Lolita 1.017 Urine Protein NEG Urine Glucose (UA) NEG Urine Ketones NEG Urine Occult Blood NEG Urine Nitrite NEG Urine Bilirubin NEG Urine Urobilinogen NEG Urine Leukocyte Esterase MODERATE Urine WBC (Auto) >30 /hpf Urine RBC (Auto) 0-4 /hpf Urine Hyaline Casts (Auto) 1-5 /lpf Urine Epithelial Cells (Auto) 0-5 /lpf Urine Bacteria (Auto) 2+ Bedside Hemoglobin 15.6 g/dl Bedside Hematocrit 46 % Bedside Sodium 140 mEq/L Bedside Potassium 4.1 mEq/L Bedside Chloride 103 mEq/L Bedside Total CO2 24 mEq/l Anion Gap 18.0 mmol/L 12.0 mmol/L Bedside Blood Urea Nitrogen 16 mg/dl Bedside Creatinine 0.7 mg/dl Bedside Glucose (other) 120 mg/dl Bedside Ionized Calcium (Brit) 1.17 mmol/l White Blood Count 17.62 K/uL Red Blood Count 5.44 M/uL Hemoglobin 15.4 g/dL Hematocrit 44.9 % Mean Corpuscular Volume 82.5 fL Mean Corpuscular Hemoglobin 28.3 pg Mean Corpuscular Hemoglobin Concent 34.3 g/dl Platelet Count 203 K/uL Mean Platelet Volume 9.9 fL Neutrophils (%) (Auto) 89.1 % Lymphocytes (%) (Auto) 4.1 % Monocytes (%) (Auto) 6.5 % Eosinophils (%) (Auto) 0.0 % Basophils (%) (Auto) 0.1 % Neutrophils # (Auto) 15.70 K/uL Lymphocytes # (Auto) 0.72 K/uL Monocytes # (Auto) 1.15 K/uL Eosinophils # (Auto) 0.00 K/uL Basophils # (Auto) 0.01 K/uL RDW Standard Deviation 40.7 fL RDW Coefficient of Variation 13.5 % Immature Granulocyte % (Auto) 0.2 % Immature Granulocyte # (Auto) 0.04 K/uL Sodium Level 140 mmol/L Potassium Level 4.0 mmol/L Chloride Level 105 mmol/L Carbon Dioxide Level 23 mmol/L Blood Urea Nitrogen 15 mg/dl Creatinine 0.87 mg/dl Est Creatinine Clear Calc Drug Dose 94.2 ml/min Estimated GFR () 102.1 Estimated GFR (Non- 88.1 BUN/Creatinine Ratio 16.9 Random Glucose 115 mg/dl Calcium Level 9.8 mg/dl Total Bilirubin 0.7 mg/dl Direct Bilirubin 0.2 mg/dl Aspartate Amino Transf (AST/SGOT) 19 U/L Alanine Aminotransferase (ALT/SGPT) 33 U/L Alkaline Phosphatase 65 U/L Troponin I < 0.015 ng/ml < 0.015 ng/ml Total Protein 7.7 gm/dl Albumin 4.3 gm/dl Lipase 148 U/L Lactic Acid Level 3.0 mmol/L Test 05/30/16 01:57 05/30/16 06:05 Lactic Acid Level 1.7 mmol/L Troponin I < 0.015 ng/ml White Blood Count 19.68 K/uL Red Blood Count 4.92 M/uL Hemoglobin 13.9 g/dL Hematocrit 40.9 % Mean Corpuscular Volume 83.1 fL Mean Corpuscular Hemoglobin 28.3 pg Mean Corpuscular Hemoglobin Concent 34.0 g/dl RDW Standard Deviation 41.5 fL RDW Coefficient of Variation 13.7 % Platelet Count 146 K/uL Mean Platelet Volume 10.0 fL Sodium Level 140 mmol/L Potassium Level 3.7 mmol/L Chloride Level 105 mmol/L Carbon Dioxide Level 26 mmol/L Anion Gap 9.0 mmol/L Blood Urea Nitrogen 13 mg/dl Creatinine 0.86 mg/dl Est Creatinine Clear Calc Drug Dose 87.6 ml/min Estimated GFR () 102.5 Estimated GFR (Non- 88.5 BUN/Creatinine Ratio 15.1 Random Glucose 95 mg/dl Calcium Level 8.6 mg/dl Magnesium Level 1.8 mg/dl Total Bilirubin 1.4 mg/dl Direct Bilirubin 0.3 mg/dl Aspartate Amino Transf (AST/SGOT) 17 U/L Alanine Aminotransferase (ALT/SGPT) 29 U/L Alkaline Phosphatase 51 U/L Total Protein 6.7 gm/dl Albumin 3.5 gm/dl Date/Time Source Procedure Growth Status 05/29/16 21:07 Blood Blood Culture Pending Received 05/29/16 21:00 Blood Blood Culture Pending Received 05/29/16 15:15 Urine , Clean Catch Urine Culture Pending Received Assessment & Plan 70 year old male presents to the ED complaining of RUQ pain since last night, CT chest consistent with cholecystitis ACUTE CHOLECYSTITIS -leukocytosis -gallbladder US s/w acute cholecystitis -blood cultures pending -lactate was 3 improved to 1.7 this morning -LFTs unremarkable -General surgery consulted and aware of patient and planning for OR this morning. -Cardiology consult placed for preop clearance input appreciated -empirically treat for infection with Zosyn, Tm 37.6 overnight -IVF hydration -npo for now HYPERTENSIVE URGENCY -CTA chest negative for aortic dissection -? uncontrolled at baseline versus pain/stress induced -pain control with morphine - [place] prescription drug monitoring program reviewed. -continue Coreg BID -hydralazine prn -serial Blair were performed and negative overnight -currently at goal. UTI -culture pending -empiric Zosyn for now -voiding spontaneously after retention last night, cont BPH meds CAD S/P CABG -continue BB -hold Aspirin for possible surgery -obtain records from [facility] -Cardiology consult for preop clearance AFIB -per patient -currently in NSR -not on anticoagulation --h/o coumadin but off it 2/2 fatigue; ASA held in light of procedure BPH -continue Flomax, Proscar LUNG NODULE -incidental finding -followup with PCP SUPERIOR MESENTERIC ARTERY STENOSIS -high grade, on CTA -awaiting Vasc Surgery consult JESS-on CPAP overnight DVT PROPHYLAXIS: SCDs RE: possible surgery Full Code Dispo-to OR pending Cards and Vasc Surg input. Dionne Coon DO [facility] Hospitalist Current Inpatient Medications: Current Inpatient Medications Medications (Trade) Dose Ordered Sig/Michael Route Start Time Stop Time Status Last Admin Dose Admin Ioversol (Optiray 320) 125 ml UD PRN IV 05/29/16 16:00 06/02/16 15:59 Acetaminophen (Tylenol Tab) 650 mg Q4H PRN PO 05/29/16 18:15 06/28/16 18:14 Ondansetron HCl (Zofran Inj) 4 mg Q6H PRN IV 05/29/16 18:15 06/28/16 18:14 Nitroglycerin 0.4 mg 0.4 mg UD PRN SL 05/29/16 18:15 06/28/16 18:14 Sodium Chloride (Nss 1000ml) 1,000 ml @ 100 mls/hr Q10H IV 05/29/16 18:30 06/28/16 18:29 05/30/16 05:18 100 MLS/HR Piperacillin Sod/ Tazobactam Sod (Consult) 1 ea UD PRN N/A 05/29/16 18:45 06/28/16 18:44 Carvedilol (Coreg Tab) 3.125 mg BID PO 05/29/16 21:00 06/28/16 20:59 05/29/16 21:57 3.125 MG Cyanocobalamin (Vitamin B-12 Tab) 500 mcg BID PO 05/29/16 21:00 06/28/16 20:59 05/29/16 21:58 500 MCG Finasteride (Proscar Tab) 5 mg QAM PO 05/30/16 09:00 06/29/16 08:59 Potassium Chloride (Klor-Con Tab) 20 meq BID PO 05/29/16 21:00 06/28/16 20:59 05/29/16 21:58 20 MEQ Tamsulosin HCl (Flomax Cap) 0.8 mg QPM PO 05/29/16 21:00 06/28/16 20:59 05/29/16 21:57 0.8 MG Morphine Sulfate (MoRPHine SULFATE INJ) 3 mg Q4H PRN IV 05/29/16 18:30 06/12/16 18:29 Hydralazine HCl 10 mg 10 mg Q6H PRN IV. 05/29/16 19:00 06/28/16 18:59 Metronidazole 500 mg/Prmx 100 ml @ 100 mls/hr Q8H IV 05/29/16 21:00 05/30/16 20:59 05/30/16 05:18 100 MLS/HR Piperacillin Sod/ Tazobactam Sod/ Dextrose (Zosyn Iv/D5 100ml) 120 ml @ 30 mls/hr Q8H IV 05/30/16 00:00 06/08/16 00:00 05/29/16 21:58 30 MLS/HR
[2016-05-30] MEDS ORDERED: CARVEDILOL 3.125 MG TAB PO ONE (11:30)
[2016-05-30] MEDS ORDERED: PERFLUTREN LIPID MICROSPHERE (DEFINITY) IV ONE (12:01)
--- NOTE | 2016-05-30 12:04 | CARDIOLOGY CONSULTATION ---
DATE OF CONSULTATION: 05/30/2016 REFERRING PHYSICIAN: Dr. Dionne Coon. REASON FOR CONSULTATION: Preoperative risk stratification. HISTORY OF PRESENT ILLNESS: Mr. Valencia is a 70-year-old [place] with a past history of coronary disease and coronary artery bypass grafting x3 in September of 2014 at the [facility] in [place]. He presented to the Emergency Department with abdominal, chest, and back discomfort. Pain initially 5/10. Right upper quadrant ultrasound and CT confirms evidence of cholecystitis with mild hyperbilirubinemia. No fevers, chills, or URI symptoms. On a day to day basis the patient is active walking on a treadmill 25-30 minutes. Denies exertional chest pain or unusual shortness of breath. His activity is limited by plantar fasciitis and osteoarthritis. The patient is followed by the [facility]. States he had a stress test performed within the past 2 months, although he cannot recall the results. He has been seen by a lead javascript engineer and their system as well. Denies any repeat cardiac catheterizations or interventions since his bypass surgery. His functional capacity is stable. Denies orthopnea, PND, lower extremity edema, or claudication. Currently, resting comfortably. Abdominal discomfort is controlled. PAST MEDICAL HISTORY: 1. Paroxysmal atrial fibrillation -- Coumadin discontinued in March by his outpatient lead javascript engineer. The patient states the atrial fibrillation was in relation to his coronary artery bypass surgery. 2. Chronic coronary disease. 3. Dyslipidemia. PAST SURGICAL HISTORY: 1. Coronary artery bypass grafting x3. 2. Orthopedic hand surgery in the setting of wounding during the [place] War. FAMILY HISTORY: Negative for premature CAD or sudden cardiac . SOCIAL HISTORY: Remote former tobacco use. Denies alcohol or illicit drug use. He is retired and lives alone. ALLERGIES: No known drug allergies. OUTPATIENT MEDICATIONS: 1. Aspirin 81 mg daily. 3. Vitamin B12 of 500 mcg daily. 4. Proscar 5 mg daily. 5. Klor-Con 20 mEq twice daily. 6. Flomax 0.8 mg daily. REVIEW OF SYSTEMS: The pertinent positive noted above, a comprehensive 10-system review is otherwise negative. ECG on admission demonstrates sinus rhythm with diffuse ST-T wave abnormality, primarily in the anterior lateral leads. Repeat ECG performed today is unchanged. LABORATORY DATA: Sodium 140, potassium 3.7, chloride 105, CO2 of 26, BUN 13, creatinine 0.86, total bilirubin 1.4, direct bilirubin 0.3. White blood cell count 19.68, hemoglobin is 13.9, platelet count is 146. Blood and urine cultures are pending. Urinalysis positive for moderate leukocyte esterase, nitrites are negative. Chest x-ray, moderate cardiomegaly, no acute cardiopulmonary findings. Telemetry demonstrates sinus rhythm. PHYSICAL EXAMINATION: VITAL SIGNS: T-max 37.6 degrees centigrade, pulse 90 beats per minute and regular, respiratory rate is 18 breaths per minute, blood pressure 124/65, and SA02 is 94% on room air. GENERAL: NAD, awake, alert and oriented x3. HEENT: Mucous membranes are moist. No scleral icterus. Conjunctivae pink. NECK: Supple. There is no JVD or HJR. No carotid bruit. HEART: Regular with a normal S1 and S2. There is no murmur, rub, or gallop. LUNGS: Clear without rales, rhonchi or wheeze. ABDOMEN: Distended with positive Mccollum sign. No rebound or guarding. Hypoactive bowel sounds. EXTREMITIES: Warm and dry without clubbing, cyanosis, or edema. NEUROLOGIC: Demonstrates no focal deficit. FINAL IMPRESSION: 1. A 70-year-old male considered moderate perioperative cardiovascular risk. 2. Chronic coronary disease, history of coronary artery bypass grafting x3 -- patient functional capacity is stable without exertional angina. 3. Abnormal baseline ECG -- no prior tracings available for review. 4. Moderate cardiomegaly on resting chest x-ray. 5. Dyslipidemia -- untreated. 6. Remote former tobacco use. PLAN AND RECOMMENDATIONS: The patient's moderate perioperative risk was discussed. He is agreeable to proceed with surgery. A resting 2D transthoracic echo will be performed to assess baseline systolic function; however, the patient appears compensated with stable functional capacity. I will give him a dose of beta-vel x1 now, carvedilol 3.125 mg. Will consider adding statin therapy postop when able to resume oral medications. Will continue to follow closely during hospitalization. No other cardiac testing at this time. Thank you for allowing me to take part in the care of your patient. LEMUEL
--- NOTE | 2016-05-30 13:03 | ECHOCARDIOGRAM REPORT ---
*NOTICE TO RECEIVING [employer] This information is strictly Confidential and protected under [place] law. [place] law prohibits you from making any further disclosure of this information unless further disclosure is expressly permitted by the written consent of the person to whom it pertains or is authorized by law. A general authorization for the release of medical or other information is not sufficient for this purpose. Hospital accepts no responsibility if the information is made available to any other person, INCLUDING THE PATIENT. Interpretation Summary * Name: ARLENE MIRZA Study Date: 05/30/2016 11:32 AM BP: 124/65 mmHg * Patient Location: .2E\S\E212\S\1 HR: 89 * : 1945 (M/d/yyyy) Gender: Male Height: 65 in * Age: 70 yrs Ethnicity: [place] Weight: 210 lb * Ordering Physician: Solo Agosto * Referring Physician: Self, Referred * Performed By: Ynes Randall RCS * * Reason For Study: A-FIB, Pre-Op Clearance * BSA: 2.0 m2 * The study was technically adequate. * Compared to prior study, there is no significant change. * -- Conclusions -- * Left ventricular systolic function is normal. * Ejection Fraction = 60-65%. * There is mild concentric left ventricular hypertrophy. * The left ventricular wall motion is normal. * The left atrium is moderately dilated. * Mild aortic root dilatation. * Grade I diastolic dysfunction, (abnormal relaxation pattern). * No significant valvular disease. Procedure Details * A complete two-dimensional transthoracic echocardiogram was performed (2D, M-mode, Doppler and color flow Doppler). * The study was technically difficult. * There were technical limitations due to patient'sbody habitus * A contrast injection of Definity was performed to improve assessment of LV function. * Contrast was injected into an intravenous site in the left arm. * One vial of Definity ultrasound contrast was diluted in normal saline to a total volume of 10 ml. A total of '2' ml of solution was administered during imaging. * Lot # [id number] of Definity utilized for procedure. * Expiration date 1DEC17. * The attending nurse who injected the contrast agent was Nadia Bo RN. Left Ventricle * The left ventricle is normal in size. * There is no thrombus. * There is mild concentric left ventricular hypertrophy. * Left ventricular systolic function is normal. * Ejection Fraction = 60-65%. * The left ventricular wall motion is normal. Right Ventricle * The right ventricle is normal size. * The right ventricular systolic function is normal as assessed by tricuspid annular plane systolic excursion (TAPSE) (normal >1.5 cm). Atria * The left atrium is moderately dilated. * Right atrial size is normal. * There is no evidence of atrial septal defect, but resolution does not allow assessment for a patent foramen ovale. Mitral Valve * The mitral valve is normal. * There is no mitral valve stenosis. * Significant mitral regurgitation is absent. Tricuspid Valve * The tricuspid valve is normal. * There is no tricuspid stenosis. * There is trace tricuspid regurgitation. Aortic Valve * The aortic valve is trileaflet. * Aortic stenosis is absent. * There is no significant aortic regurgitation. Pulmonic Valve * The pulmonary valve is not well seen, but the Doppler examination is normal without significant regurgitation or stenosis. Great Vessels * Mild aortic root dilatation. Pericardium/Pleural * There is no pericardial effusion. Great Vessels * Normal inferior vena cava diameter and respiratory variation suggests normal central venous pressure. Left Ventricular Diastolic Function * Grade I diastolic dysfunction, (abnormal relaxation pattern). MMode 2D Measurements and Calculations IVSd 1.3 cm IVSs 1.8 cm LVIDd 3.8 cm LVIDs 2.7 cm LVPWd 1.3 cm LVPWs 1.7 cm IVS/LVPW 1.0 FS 29.1 % EDV(Teich) 62.7 ml ESV(Teich) 27.2 ml EF(Teich) 56.7 % EDV(cubed) 55.7 ml ESV(cubed) 19.8 ml EF(cubed) 64.4 % % IVS thick 30.8 % % LVPW thick 23.0 % LV mass(C)d 183.9 grams LV mass(C)dI 91.1 grams/m\S\2 LV mass(C)s 175.1 grams LV mass(C)sI 86.7 grams/m\S\2 CO(Teich) 2.6 l/min CI(Teich) 1.3 l/min/m\S\2 SV(Teich) 35.5 ml SI(Teich) 17.6 ml/m\S\2 CO(cubed) 2.6 l/min CI(cubed) 1.3 l/min/m\S\2 SV(cubed) 35.9 ml SI(cubed) 17.8 ml/m\S\2 Ao root diam 4.2 cm Ao root area 13.6 cm\S\2 ACS 1.7 cm LA dimension 4.6 cm LA/Ao 1.1 LVAd ap4 33.8 cm\S\2 LVLd ap4 8.6 cm EDV(MOD-sp4) 109.0 ml LVAs ap4 18.5 cm\S\2 LVLs ap4 7.5 cm ESV(MOD-sp4) 41.0 ml EF(MOD-sp4) 62.4 % LVAd ap2 32.6 cm\S\2 LVLd ap2 8.8 cm EDV(MOD-sp2) 100.0 ml LVAs ap2 20.0 cm\S\2 LVLs ap2 7.1 cm ESV(MOD-sp2) 50.0 ml EF(MOD-sp2) 50.0 % CO(MOD-sp4) 5.0 l/min CI(MOD-sp4) 2.5 l/min/m\S\2 SV(MOD-sp4) 68.0 ml SI(MOD-sp4) 33.7 ml/m\S\2 CO(MOD-sp2) 3.7 l/min CI(MOD-sp2) 1.8 l/min/m\S\2 SV(MOD-sp2) 50.0 ml SI(MOD-sp2) 24.8 ml/m\S\2 Doppler Measurements and Calculations MV E max antoine 51.3 cm/sec MV A max antoine 89.8 cm/sec MV E/A 0.57 MV P1/2t max antoine 66.6 cm/sec MV P1/2t 88.6 msec MVA(P1/2t) 2.5 cm\S\2 MV dec slope 220.3 cm/sec\S\2 MV dec time 0.32 sec Ao V2 max 148.6 cm/sec Ao max PG 8.8 mmHg Ao max PG (full) 4.7 mmHg LV V1 max PG 4.1 mmHg LV V1 max 101.8 cm/sec PA V2 max 106.7 cm/sec PA max PG 4.6 mmHg
[2016-05-30] MEDS ORDERED: FENTANYL CITRATE INJ 50 MCG/1 ML 2 ML VIAL ONE (13:58)
[2016-05-30] MEDS ORDERED: MoRPHine SULFATE 2 MG/ML CARP ONE (14:34)
[2016-05-30] MEDS ORDERED: CONRAY 60% 50 ML VIAL INSTIL ONE (14:42)
[2016-05-30] MEDS ORDERED: GLYCOPYRROLATE INJ 0.2 MG/ML VIAL ONE (14:43)
[2016-05-30] MEDS ORDERED: SUCCINYLCHOLINE CHLORIDE 20 MG/ML 10 ML VIAL IV ONE (14:43)
[2016-05-30] MEDS ORDERED: NEOSTIGMINE METHYLSULFATE 5 MG/5 ML SYR ONE (14:43)
[2016-05-30] MEDS ORDERED: ROCURONIUM BROMIDE 10 MG/ML 5 ML VIAL ONE (14:43)
[2016-05-30] MEDS ORDERED: LIDOCAINE HCL 2% 2 ML VIAL (20MG/ML) ONE (14:43)
[2016-05-30] MEDS ORDERED: ONDANSETRON INJ 2 MG/ML 2 ML VIAL ONE (14:43)
[2016-05-30] MEDS ORDERED: PROPOFOL IV EMULSION 10 MG/ML 20 ML VIAL IV ONE (14:43)
[2016-05-30] MEDS ORDERED: KETOROLAC TROMETHAMINE 30 MG/ML VIAL ONE (14:43)
[2016-05-30] MEDS ORDERED: PHENYLEPHRINE 100MCG/ML 5ML SYR ONE (14:43)
--- NOTE | 2016-05-30 15:00 | DIAGNOSTIC IMAGING REPORT ---
INTRAOPERATIVE CHOLANGIOGRAM HISTORY: Post cholecystectomy. FLUOROSCOPY TIME: 4 seconds. A single fluoroscopic spot image submitted. FINDINGS: Fluoroscopy was provided for an intraoperative cholangiogram status post cholecystectomy. Contrast was injected through the cystic duct remnant. The common bile duct is normal in course and caliber. There are no filling defects seen within the common bile duct to suggest a retained stone. Contrast extends into the small bowel. There is no intrahepatic bile duct dilatation. IMPRESSION: Fluoroscopy provided for an intraoperative cholangiogram status post cholecystectomy. No filling defects within the common bile duct. Electronically signed by: Chace Mcclelland M.D. 05/30/2016 2:58 PM Dictated Date/Time: 05/30/2016 2:58 PM
--- NOTE | 2016-05-30 15:05 | [facility] Post Operative Brief Note ---
Immediate Operative Summary Operative Date May 30, 2016. Pre-Operative Diagnosis Acute cholecystits Post-Operative Diagnosis Same likely necrotizing Procedure(s) Performed Laparoscopic Cholecystectomy with Cholangiogram Surgeon Dr Courtney/ Dr Sahu Wire Weaving Loom Setter Surgeon(s) Justin Green PA-C Estimated Blood Loss 5ML Findings markedly acute likely necrotizing cholecystitis Specimens Culture #1 urine A. gallbladder Drains 19 crystal per stab
[2016-05-30] MEDS ORDERED: LIDOCAINE/EPINEPHRINE 1% 20 ML VIAL INJ ONE (15:10)
[2016-05-30] MEDS ORDERED: OXYCODONE/ACETAMINOPHEN 5-325 TAB PO PRN (15:15)
[2016-05-30] MEDS ORDERED: MoRPHine SULFATE 4 MG/ML 1 ML CARP\\VIAL IV PRN ×2 (15:15→23:45)
[2016-05-30] MEDS ORDERED: EpHEDrine SULFATE INJ 50 MG/ML AMP IV PRN (15:30)
[2016-05-30] MEDS ORDERED: ONDANSETRON INJ 2 MG/ML 2 ML VIAL IV PRN ×2 (15:30→23:45)
[2016-05-30] MEDS ORDERED: HYDROmorphone INJ 1 MG/ML SYR IV PRN (15:30)
[2016-05-30] MEDS ORDERED: ATROPINE SULFATE 0.1 MG/ML 5ML SYR IV PRN (15:30)
[2016-05-30] MEDS ORDERED: FENTANYL CITRATE INJ 50 MCG/1 ML 2 ML VIAL IV PRN (15:30)
[2016-05-30] MEDS ORDERED: PROMETHAZINE HCL INJ 6.25 MG in SODIUM CHLORIDE 0.9% 50ML 50 ML IV PRN (15:30)
--- NOTE | 2016-05-30 15:30 | OPERATIVE REPORT ---
DATE OF OPERATION: 05/30/2016 PREOPERATIVE DIAGNOSES: Acute cholecystitis, cholelithiasis. POSTOPERATIVE DIAGNOSIS: Same, likely necrotizing cholecystitis. PROCEDURE: Laparoscopic cholecystectomy, intraoperative cholangiogram. SURGEON: Dr. Courtney. DEPARTMENT [employer]: Dr. Rishi Sahu. OPERATION AND FINDINGS: SUMMARY: The patient was brought into the operating room theater. The abdomen was prepped with Betadine solution and properly draped. Burton catheter had been inserted since the patient had some urinary retention needed to be straight cathed last evening. I made a small incision supraumbilically to the left. Actually, the patient had a very thin abdominal wall and had previous surgery in the abdominal wall. It was hard to define whether or not the umbilicus was in the midline or not but we went from the xiphoid down to an area where it was very thin. A small incision was made transversely enough to place a Veress needle followed by CO2 followed by a 5 mm trocar. Point of entry inspected and no injury identified. Under direct visualization, we could see the right upper quadrant. The omentum was splayed over the gallbladder. A 5 mm epigastric with two 5 mm subcostal ports were placed with preemptive local analgesia 1% Xylocaine. At this point, due to the position of the omentum and the gallbladder which once we freed up the omentum from it, which fell out fairly easily, the gallbladder was acutely inflamed, likely patchy necrosis or necrotizing pattern. We needed to place another 5 mm more in the midline to retract out the omentum which we did. Then we went on and dissected out the sunita hepatis, identified the cystic artery, the triangle of Calot, identified the cystic duct, clipped it proximally. A small opening in the cystic duct was made. A #4 urethral catheter transversing the abdominal wall and a 14 Angiocath was positioned in the cystic duct. Serial x-rays were taken, showed free flow into the duodenum. No obstruction could see some pancreatic duct. The cholangiocath was then removed. The cystic duct was doubly clipped and divided. The artery was identified, doubly clipped and divided. Gallbladder was pretty much bluntly taken off the liver and gallbladder fossa since a significant amount of edema was present. A few small veins were cauterized. The gallbladder which we made a small opening in it was placed in an Endopouch and taken out through the epigastric port. The subhepatic suprahepatic area was then checked for hemostasis and appeared satisfactory. I elected to drain this with a Poli drain that was brought out medially, taken out lateral subhepatic and attached to skin edges 2-0 silk. We placed the camera in subcostal port to visualize the umbilical opening. There were no adhesions identified in the anterior abdominal wall there. Once the drain was positioned attached to skin edges with 2-0 silk individual trocars were removed and wounds closed with 4-0 Monocryl. Steri-Strips applied. We did put a fascial stitch in the epigastric trocar site since we enlarged it from 5 mm just bigger to get rid of the gallbladder and the contents. I attest to the content of the Intraoperative Record and any orders documented therein. Any exceptio ns are noted below.
--- NOTE | 2016-05-30 16:27 | Anesthesiology Progress Note ---
Anesthesia Post Op Note Date & Time May 30, 2016 at 16:27 Vital Signs Pain Intensity: 0 Vital Signs Past 12 Hours Date Time Temp Pulse Resp B/P Pulse Ox O2 Delivery O2 Flow Rate FiO2 05/30/16 16:20 56 18 105/66 93 Nasal Cannula 2 05/30/16 16:10 52 15 115/60 92 Nasal Cannula 2 05/30/16 16:00 54 19 110/63 92 Nasal Cannula 2 05/30/16 15:50 53 18 123/72 90 Nasal Cannula 2 05/30/16 15:40 54 18 128/74 97 Mask 10 05/30/16 15:30 62 13 135/75 97 Mask 10 05/30/16 15:24 37.4 72 17 120/71 97 Mask 10 05/30/16 12:03 37.0 86 20 131/63 93 Room Air 05/30/16 12:00 94 Room Air 05/30/16 08:27 37.0 90 18 124/65 94 Room Air 05/30/16 07:40 Room Air Notes Mental Status: alert / awake / arousable, participated in evaluation Pt Amnestic to Procedure: Yes Nausea / Vomiting: adequately controlled Pain: adequately controlled Airway Patency, RR, SpO2: stable & adequate BP & HR: stable & adequate Hydration State: stable & adequate Anesthetic Complications: no major complications apparent
[2016-05-30] MEDS ORDERED: NURSING VERBAL MED ORDER ONE (16:30)
[2016-05-30] MEDS ORDERED: ALBUT/IPRATROP 3MG/0.5MG NEB 3 ML VIAL INH SCH (17:00)
[2016-05-30] MEDS: NSS + 20MEQ KCL 1000ML 1,000 ML IV SCH (17:12)
[2016-05-30] MEDS: TAMSULOSIN HCL 0.4 MG CAP PO SCH (21:01)
[2016-05-30] MEDS ORDERED: LACTATED RINGER'S 1000ML 1,000 ML IV SCH (23:41)
[2016-05-30] MEDS ORDERED: MoRPHine SULFATE 10 MG/ML CARP/VIAL IV PRN (23:45)
[2016-05-30] MEDS ORDERED: ACETAMINOPHEN 325 MG TAB PO PRN (23:45)
[2016-05-30] MEDS ORDERED: HYDROCODONE/ACETAMOPHEN 5/325MG TAB PO PRN (23:45)
[2016-05-31] VITALS (9 sets, daily range): BP systolic 119–144; BP diastolic 63–83; PULSE 57–64; TEMP 36.4–37.5; O2SAT 91–96
[2016-05-31] MEDS: PIPERACILL/TAZOBAC IV 4.5 GM in DEXTROSE 5% 100ML IV SCH ×2 (00:31→08:16)
[2016-05-31] MEDS: NSS + 20MEQ KCL 1000ML 1,000 ML IV SCH (00:32)
[2016-05-31 06:17] LABS: BASO % 0.1 %; BASO ABS # 0.01 K/uL (0-0.2); COMPLETE YES; EOS % 0.1 %; HEMATOCRIT 37.4 % (42-52); IG% 0.2 %; LYMPH % 7.8 %; MEAN CELL VOLUME 84.6 fL (80-100); MEAN CORPUSCULAR HEMOGLOBIN 27.8 pg (25-34); MEAN CORPUSCULAR HGB CONC 32.9 g/dl (32-36); MEAN PLATELET VOLUME 9.7 fL (7.4-10.4); MONO % 7.2 %; NEUT % 84.6 %; PLATELET COUNT 141 K/uL (130-400); RED BLOOD COUNT 4.42 M/uL (4.7-6.1); WHITE BLOOD COUNT 14.11 K/uL (4.8-10.8)
[2016-05-31 06:48] LABS: CALCIUM 8.6 mg/dl (8.5-10.1); CREATININE 0.97 mg/dl (0.60-1.40); POTASSIUM 3.9 mmol/L (3.5-5.1)
[2016-05-31] MEDS: POTASSIUM CHLORIDE 20 MEQ TABCR PO SCH ×2 (08:07→20:50)
[2016-05-31] MEDS: CARVEDILOL 6.25 MG TAB PO SCH ×2 (08:08→20:49)
[2016-05-31] MEDS: CYANOCOBALAMIN 500 MCG TAB (VIT B-12) PO SCH ×2 (08:08→20:50)
[2016-05-31] MEDS: PANTOprazole SOD 40 MG TAB PO SCH (08:08)
[2016-05-31] MEDS: FINASTERIDE 5 MG TAB PO SCH (08:08)
[2016-05-31] MEDS: HYDROCODONE/ACETAMOPHEN 5/325MG TAB PO PRN ×2 (08:16→17:19)
--- NOTE | 2016-05-31 09:25 | SURGERY PROGRESS NOTE ---
DATE: 05/31/2016 Yobany is sitting up in no acute distress. His last temperature was 36.5, pulse 57, respirations 17, blood pressure 128/73, O2 sat is 94 on room air. His I\T\O, he had 1420 urine output yesterday. The Poli drainage was 85, it was serosanguineous, nonbilious. His abdomen is softly distended. It is nontender. The intraoperative findings were discussed with the patient. The other issue is I elected to place a Burton catheter at the time of the surgery since when he came in the patient had had some urinary retention and needed a straight catheterization. In further questioning the patient, he does have a significant dysuria. Therefore, I will leave the Burton catheter in at this time and have Urology see the patient. I will leave it up to them as far as the avenue to take regarding removing the catheter and further workup for his dysuria. I know the patient gets most of his care at the [facility] in [place]. But overall at this point, he is tolerating a diet. We will cut down his IV fluids and increase his activity.
--- NOTE | 2016-05-31 09:29 | Anesthesiology Progress Note ---
Anesthesia Post Op Note Date & Time May 31, 2016 at 09:28 Vital Signs Pain Intensity: 6.0 Vital Signs Past 12 Hours Date Time Temp Pulse Resp B/P Pulse Ox O2 Delivery O2 Flow Rate FiO2 05/31/16 07:44 36.5 57 17 128/73 94 05/31/16 04:20 36.7 61 22 119/63 93 Room Air 05/31/16 04:02 Room Air 05/31/16 00:02 Nasal Cannula 2.0 05/30/16 23:54 37.0 60 20 116/64 95 Room Air Notes Mental Status: alert / awake / arousable, participated in evaluation Pt Amnestic to Procedure: Yes Nausea / Vomiting: adequately controlled Pain: adequately controlled Airway Patency, RR, SpO2: stable & adequate BP & HR: stable & adequate Hydration State: stable & adequate Anesthetic Complications: no major complications apparent
--- NOTE | 2016-05-31 09:44 | Urology Consultation ---
History General Date of Service: May 31, 2016. Chief Complaint: incomplete bladder emptying Primary Care Physician: Frida Alvarez C.R.N.P. Pt seen a urologist before?: Yes (at the [facility]. ) If yes, why?: BPH History of Present Illness 70 yo male s/p lap valerie. consulted for incomplete bladder emptying. Pruett catheter currently in place draining dark, yellow urine. The pt reports a hx of BPH for which he sees a urologist at the [facility]. He is currently on finasteride and tamsulosin. He reports baseline urgency, frequency, and nocturia 2-4x per night. UC&S pending this morning. Laboratory Last 24 Hours Test 05/31/16 05:41 White Blood Count 14.11 K/uL Red Blood Count 4.42 M/uL Hemoglobin 12.3 g/dL Hematocrit 37.4 % Mean Corpuscular Volume 84.6 fL Mean Corpuscular Hemoglobin 27.8 pg Mean Corpuscular Hemoglobin Concent 32.9 g/dl Platelet Count 141 K/uL Mean Platelet Volume 9.7 fL Neutrophils (%) (Auto) 84.6 % Lymphocytes (%) (Auto) 7.8 % Monocytes (%) (Auto) 7.2 % Eosinophils (%) (Auto) 0.1 % Basophils (%) (Auto) 0.1 % Neutrophils # (Auto) 11.95 K/uL Lymphocytes # (Auto) 1.10 K/uL Monocytes # (Auto) 1.01 K/uL Eosinophils # (Auto) 0.01 K/uL Basophils # (Auto) 0.01 K/uL RDW Standard Deviation 43.2 fL RDW Coefficient of Variation 13.9 % Immature Granulocyte % (Auto) 0.2 % Immature Granulocyte # (Auto) 0.03 K/uL Sodium Level 142 mmol/L Potassium Level 3.9 mmol/L Chloride Level 108 mmol/L Carbon Dioxide Level 26 mmol/L Anion Gap 8.0 mmol/L Blood Urea Nitrogen 15 mg/dl Creatinine 0.97 mg/dl Est Creatinine Clear Calc Drug Dose 77.6 ml/min Estimated GFR () 91.9 Estimated GFR (Non- 79.3 BUN/Creatinine Ratio 16.0 Random Glucose 106 mg/dl Calcium Level 8.6 mg/dl Problem List Medical Problems: (1) Leukocytosis Status: Acute (2) Precordial chest pain Status: Acute (3) Urinary retention Status: Acute Past History A Fib, BPH, coronary artery disease, other (cholecystitis) Past Surgical History: cholecystectomy, coronary bypass surgery Family History Patient reports no known family medical history. Social History Hx Tobacco Use In Past Year?: No (REPORTS QUITTING ALL TOBACCO "30 OR 40 YEARS AGO, IN THE 80'S" ) Smoking: non-smoker Alcohol: never Marital status: single Housing status: lives alone Occupation status: retired History of MDRO No Allergies Coded Allergies: No Known Allergies (Unverified , 05/29/16) Medications Home Medications: Home Meds and Scripts Medications Dose Route/Sig Max Daily Dose Days Date Category Vitamin B-12 (Cyanocobalamin) 500 Mcg Tab 500 Mcg PO BID 05/29/16 Reported Coreg (Carvedilol) 6.25 Mg Tab 0.5 Tab PO BID 05/29/16 Reported Klor-Con (Potassium Chloride) 20 Meq Tabcr 20 Meq PO BID 05/29/16 Reported Aspirin Ec (Aspirin) 81 Mg Tab 81 Mg PO DAILY 05/29/16 Reported Tamsulosin HCl 0.4 Mg Cap 0.8 Mg PO QPM 05/29/16 Reported Proscar (Finasteride) 5 Mg Tab 5 Mg PO QAM 05/29/16 Reported Inpatient Medications: Current Inpatient Medications Medications (Trade) Dose Ordered Sig/Michael Route Start Time Stop Time Status Last Admin Dose Admin Ioversol (Optiray 320) 125 ml UD PRN IV 05/29/16 16:00 06/02/16 15:59 Nitroglycerin (Nitrostat Tab) 0.4 mg UD PRN SL 05/29/16 18:15 06/28/16 18:14 Piperacillin Sod/ Tazobactam Sod (Consult) 1 ea UD PRN N/A 05/29/16 18:45 06/28/16 18:44 Carvedilol (Coreg Tab) 3.125 mg BID PO 05/29/16 21:00 06/28/16 20:59 05/31/16 08:08 3.125 MG Cyanocobalamin (Vitamin B-12 Tab) 500 mcg BID PO 05/29/16 21:00 06/28/16 20:59 05/31/16 08:08 500 MCG Finasteride (Proscar Tab) 5 mg QAM PO 05/30/16 09:00 2/23/17 08:59 05/31/16 08:08 5 MG Potassium Chloride (Klor-Con Tab) 20 meq BID PO 05/29/16 21:00 06/28/16 20:59 05/31/16 08:07 20 MEQ Tamsulosin HCl (Flomax Cap) 0.8 mg QPM PO 05/29/16 21:00 06/28/16 20:59 05/30/16 21:01 0.8 MG Hydralazine HCl 10 mg 10 mg Q6H PRN IV. 05/29/16 19:00 06/28/16 18:59 Piperacillin Sod/ Tazobactam Sod/ Dextrose (Zosyn Iv/D5 100ml) 120 ml @ 30 mls/hr Q8H IV 05/30/16 00:00 06/08/16 00:00 05/31/16 08:16 30 MLS/HR Oxycodone/ Acetaminophen (Percocet 5-325mg Tab) 2 tab Q4H PRN PO 05/30/16 15:15 06/13/16 15:14 Morphine Sulfate 4 mg 4 mg Q1H PRN IV 05/30/16 15:15 06/13/16 15:14 Lactated Ringer's (Lr 1000ml) 1,000 ml @ 50 mls/hr Q20H IV 05/30/16 23:41 Acetaminophen (Tylenol Tab) 650 mg Q6H PRN PO 05/30/16 23:45 06/29/16 23:44 Acetaminophen/ Hydrocodone Bitart ([place] 5/325 Tab) 1 tab Q4H PRN PO 05/30/16 23:45 06/13/16 23:44 05/31/16 08:16 1 TAB Morphine Sulfate (MoRPHine SULFATE INJ) 3 mg Q3H PRN IV 05/30/16 23:45 06/13/16 23:44 05/31/16 08:17 3 MG Acetaminophen/ Hydrocodone Bitart ([place] 5/325 Tab) 2 tab Q4H PRN PO 05/30/16 23:45 06/13/16 23:44 Morphine Sulfate (MoRPHine SULFATE INJ) 5 mg Q3H PRN IV 05/30/16 23:45 06/13/16 23:44 Ondansetron HCl (Zofran Inj) 4 mg Q6H PRN IV 05/30/16 23:45 06/29/16 23:44 Pantoprazole Sodium (Protonix Tab) 40 mg QAM PO 05/31/16 09:00 06/30/16 08:59 05/31/16 08:08 40 MG Review of Systems Review of Systems Constitutional: No chills, No fever Eyes: No double vision Neurological: No dizzy Endocrine: No excessive thirst Gastrointestinal: + abdominal pain (incisional discomfort), No nausea, No vomiting Cardiovascular: No chest pain Respiratory: No shortness of breath Skin: No rash Musculoskeletal: + arthritis Male : + frequent urination, + nocturia more than once/night, + urinary retention Physical Exam Vital Signs: Vital Signs Past 12 Hours Date Time Temp Pulse Resp B/P Pulse Ox O2 Delivery O2 Flow Rate FiO2 05/31/16 07:44 36.5 57 17 128/73 94 05/31/16 04:20 36.7 61 22 119/63 93 Room Air 05/31/16 04:02 Room Air 05/31/16 00:02 Nasal Cannula 2.0 05/30/16 23:54 37.0 60 20 116/64 95 Room Air Physical Exam: General Appearance: no apparent distress, + obese Eyes: bilateral eyes normal inspection ENT: hearing grossly normal Neck: no JVD Respiratory/Chest: no respiratory distress, no accessory muscle use Cardiovascular: no JVD Extremities: normal inspection Neurologic/Psychiatric: alert, normal mood/affect, oriented x 3 Skin: normal color Assessment & Plan Assessment & Plan A/P: Post-op incomplete bladder emptying, BPH AFVSS. Will leave pruett in place for now. Trial of void prior to discharge home. Possible d/c home on 06-02. Can do TOV that AM if discharged that day. Continue Flomax and finasteride. Recommend f/u with a urologist in 1-2 weeks after discharge for a PVR. [facility] Thanks for the consult. Will continue to follow along with primary service.
--- NOTE | 2016-05-31 14:09 | CARDIOLOGY PROGRESS NOTE ---
DATE: 05/31/2016 DATE: 05/31/2016. SUBJECTIVE: The patient is seen and examined at the bedside. Doing well postoperatively. Denies chest pain or unusual shortness of breath. Sinus rhythm on telemetry without dysrhythmias. No orthopnea, PND, or lower extremity edema. Offers no complaints at this time. ECG: Sinus bradycardia with nonspecific T-wave abnormality. MEDICATIONS: Reviewed via EMR. Please see list for details. LABORATORY DATA: White blood cell count 14.11, hemoglobin is 12.3, platelet count is 141. Sodium 142, potassium 3.9, chloride 108, CO2 26, BUN is 15, creatinine is 0.97. PHYSICAL EXAMINATION: VITAL SIGNS: Temperature is 37 degrees centigrade, pulse 61 beats per minute and regular, respiratory rate is 18 breaths per minute, blood pressure 137/79, SaO2 94% on room air. GENERAL: NAD, obese, awake, alert and oriented x3. HEAD, EYES, EARS, NOSE, AND THROAT: Mucous membranes moist. No scleral icterus. Conjunctivae pink. NECK: Supple, no JVD or HJR. No carotid bruit. HEART: Regular with a normal S1 and S2, no murmur, rub, or gallop. LUNGS: Clear without rales, rhonchi or wheeze. ABDOMEN: Mildly distended, diffusely tender. No rebound or guarding, hypoactive bowel sounds noted. EXTREMITIES: Warm and dry without clubbing, cyanosis, or edema. NEUROLOGIC: Demonstrates no focal deficit. FINAL IMPRESSION: 1. Postoperative day #1 laparoscopic cholecystectomy - recovering well. 2. Chronic coronary disease, history of prior coronary artery bypass grafting - clinically stable without recurrent angina. 3. History of postoperative paroxysmal atrial fibrillation without recurrence. 4. Hypertension -- controlled. PLAN AND RECOMMENDATIONS: The patient is recovering well and appears stable from a cardiovascular perspective. I recommend he continue current cardiovascular medications including carvedilol. Aspirin will be restarted 81 mg daily. Consider addition of statin therapy prior to discharge. No further cardiac testing at this time. [facility]
--- NOTE | 2016-05-31 15:23 | Progress Note ---
Medicine Progress Note Date & Time of Visit: May 31, 2016 at 14:32. Subjective Feeling improved today although has soreness in RUQ No nausea but doesn't feel 100% yet Tolerating PO Unsure if flatus, denies BM Ambulatory Denies any other symptoms of chest pain/SOB Burton in place and seen by Urology today They recommend keeping Burton for another day and then TOV prior to discharge, likely Fri am Cont BPH meds. Objective Last 8 Hrs Date Time Temp Pulse Resp B/P Pulse Ox O2 Delivery O2 Flow Rate FiO2 05/31/16 12:00 Room Air 05/31/16 11:14 37.0 61 18 137/79 92 05/31/16 08:00 Room Air 05/31/16 08:00 94 Room Air 05/31/16 07:44 36.5 57 17 128/73 94 Physical Exam: GEN: WNWD, in mild distress, alert and appropriate, frequently yawning and appears fatigued again today HEENT: NC/AT, normal sclerae CARDIO: reg rate, S1/2 heard without m/g/r LUNGS: CTA bilaterally, no crackles, rales or wheezes, good diaphragmatic excursion, diminished breath sounds ABD: +BS, soft, TTP in RUQ improved from yesterday, sore around incision sites, non-distended but protuberant, MANUEL drain in place with serosanguinous drainage EXTREMITY: no LE swelling or edema, extremities are warm and well-perfused NEURO: CN 2-12 grossly intact MUSC: moves all extremities equally, stands and maneuvers on his own, no gross focal deficits. SKIN: warm and dry and multiple well-healing, non-draining incision sites on abdomen Laboratory Results: Last 24 Hours Test 05/31/16 05:41 White Blood Count 14.11 K/uL Red Blood Count 4.42 M/uL Hemoglobin 12.3 g/dL Hematocrit 37.4 % Mean Corpuscular Volume 84.6 fL Mean Corpuscular Hemoglobin 27.8 pg Mean Corpuscular Hemoglobin Concent 32.9 g/dl Platelet Count 141 K/uL Mean Platelet Volume 9.7 fL Neutrophils (%) (Auto) 84.6 % Lymphocytes (%) (Auto) 7.8 % Monocytes (%) (Auto) 7.2 % Eosinophils (%) (Auto) 0.1 % Basophils (%) (Auto) 0.1 % Neutrophils # (Auto) 11.95 K/uL Lymphocytes # (Auto) 1.10 K/uL Monocytes # (Auto) 1.01 K/uL Eosinophils # (Auto) 0.01 K/uL Basophils # (Auto) 0.01 K/uL RDW Standard Deviation 43.2 fL RDW Coefficient of Variation 13.9 % Immature Granulocyte % (Auto) 0.2 % Immature Granulocyte # (Auto) 0.03 K/uL Sodium Level 142 mmol/L Potassium Level 3.9 mmol/L Chloride Level 108 mmol/L Carbon Dioxide Level 26 mmol/L Anion Gap 8.0 mmol/L Blood Urea Nitrogen 15 mg/dl Creatinine 0.97 mg/dl Est Creatinine Clear Calc Drug Dose 77.6 ml/min Estimated GFR () 91.9 Estimated GFR (Non- 79.3 BUN/Creatinine Ratio 16.0 Random Glucose 106 mg/dl Calcium Level 8.6 mg/dl Assessment & Plan 70 year old male presents to the ED complaining of RUQ pain, CT chest consistent with cholecystitis s/p lap valerie on 05/31 ACUTE CHOLECYSTITIS -POD#1 lap valerie--recovering well -tolerating PO -not sure if passing flatus, no BM -RUQ is sore-pain controlled -leukocytosis improved -blood cultures negative -cont Zosyn for now; afebrile overnight -IVF hydration stopped as patient tolerating PO -cont incentive spirometer HYPERTENSION -BP controlled, cont current management -postop pain control as needed -continue Coreg BID -serial Blair were performed and negative -CTA chest negative for aortic dissection on admission URINARY RETENTION -Urology saw patient and recommends continuing Burton with TOV prior to discharge -has BPH and on Finasteride and Tamsulosin-cont these -UCx negative for infection CAD S/P CABG -continue BB -ASA restarted by Cardiology -gets care at [facility] -will add statin at this time for medical management CAD (Lipitor 20mg PO qHS) H/O POST-OP PAROXYSMAL AFIB WITHOUT RECURRENCE -currently in NSR -not on anticoagulation --h/o coumadin but off it 2/2 fatigue; ASA for stroke risk reduction -rate controlled move of telemetry at this time. BPH -continue Flomax, Proscar -management with Burton as above -f/u with Urology as outpatient in 1-2 weeks. LUNG NODULE -incidental finding -followup with PCP [facility] STENOSIS -high grade, on CTA -awaiting Vasc Surgery consult JESS-on CPAP overnight DVT PROPHYLAXIS: add Lovenox/cont SCDs Full Code Dionne Coon DO [facility] Hospitalist Consultants: Gen Surg, Cardiology, Urology Current Inpatient Medications: Current Inpatient Medications Medications (Trade) Dose Ordered Sig/Michael Route Start Time Stop Time Status Last Admin Dose Admin Ioversol (Optiray 320) 125 ml UD PRN IV 05/29/16 16:00 06/02/16 15:59 Nitroglycerin (Nitrostat Tab) 0.4 mg UD PRN SL 05/29/16 18:15 06/28/16 18:14 Piperacillin Sod/ Tazobactam Sod (Consult) 1 ea UD PRN N/A 05/29/16 18:45 06/28/16 18:44 Carvedilol (Coreg Tab) 3.125 mg BID PO 05/29/16 21:00 06/28/16 20:59 05/31/16 08:08 3.125 MG Cyanocobalamin (Vitamin B-12 Tab) 500 mcg BID PO 05/29/16 21:00 06/28/16 20:59 05/31/16 08:08 500 MCG Finasteride (Proscar Tab) 5 mg QAM PO 05/30/16 09:00 06/29/16 08:59 05/31/16 08:08 5 MG Potassium Chloride (Klor-Con Tab) 20 meq BID PO 05/29/16 21:00 06/28/16 20:59 05/31/16 08:07 20 MEQ Tamsulosin HCl (Flomax Cap) 0.8 mg QPM PO 05/29/16 21:00 06/28/16 20:59 05/30/16 21:01 0.8 MG Hydralazine HCl (HydrALAZINE INJ) 10 mg Q6H PRN IV. 05/29/16 19:00 06/28/16 18:59 Oxycodone/ Acetaminophen (Percocet 5-325mg Tab) 2 tab Q4H PRN PO 05/30/16 15:15 06/13/16 15:14 Morphine Sulfate 4 mg 4 mg Q1H PRN IV 05/30/16 15:15 06/13/16 15:14 Lactated Ringer's (Lr 1000ml) 1,000 ml @ 50 mls/hr Q20H IV 05/30/16 23:41 Acetaminophen (Tylenol Tab) 650 mg Q6H PRN PO 05/30/16 23:45 06/29/16 23:44 Acetaminophen/ Hydrocodone Bitart ([place] 5/325 Tab) 1 tab Q4H PRN PO 05/30/16 23:45 06/13/16 23:44 05/31/16 08:16 1 TAB Morphine Sulfate (MoRPHine SULFATE INJ) 3 mg Q3H PRN IV 05/30/16 23:45 06/13/16 23:44 05/31/16 08:17 3 MG Acetaminophen/ Hydrocodone Bitart ([place] 5/325 Tab) 2 tab Q4H PRN PO 05/30/16 23:45 06/13/16 23:44 Morphine Sulfate (MoRPHine SULFATE INJ) 5 mg Q3H PRN IV 05/30/16 23:45 06/13/16 23:44 Ondansetron HCl (Zofran Inj) 4 mg Q6H PRN IV 05/30/16 23:45 06/29/16 23:44 Pantoprazole Sodium 40 mg 40 mg QAM PO 05/31/16 09:00 06/30/16 08:59 05/31/16 08:08 40 MG Piperacillin Sod/ Tazobactam Sod/ Dextrose (Zosyn Iv/D5 100ml) 115 ml @ 28.75 mls/ hr Q8H IV 05/31/16 16:00 06/08/16 00:00 Aspirin (Aspirin Chew) 81 mg DAILY PO 06/01/16 09:00 07/01/16 08:59
[2016-05-31] MEDS: PIPERACILL/TAZOBAC IV 3.375 GM in DEXTROSE 5% 100ML 100 ML IV SCH (17:14)
[2016-05-31] MEDS ORDERED: NURSING DECISION MEDICATION ORDER SCH (19:30)
[2016-05-31] MEDS ORDERED: COUGH DROP (SUGAR FREE) LOZ 24 LOZ/1 BOX PO PRN (19:45)
[2016-05-31] MEDS: TAMSULOSIN HCL 0.4 MG CAP PO SCH (20:50)
[2016-05-31] MEDS: ATORVASTATIN 20 MG TAB PO SCH (20:50)
[2016-06-01] MEDS: PIPERACILL/TAZOBAC IV 3.375 GM in DEXTROSE 5% 100ML 100 ML IV SCH ×3 (00:04→16:14)
[2016-06-01 06:01] LABS: BASO % 0.2 %; BASO ABS # 0.02 K/uL (0-0.2); COMPLETE YES; EOS % 0.6 %; HEMATOCRIT 41.3 % (42-52); IG% 0.2 %; LYMPH % 12.2 %; LYMPH ABS # 1.16 K/uL (1.2-3.4); MEAN CELL VOLUME 83.9 fL (80-100); MEAN CORPUSCULAR HEMOGLOBIN 27.8 pg (25-34); MEAN CORPUSCULAR HGB CONC 33.2 g/dl (32-36); MEAN PLATELET VOLUME 9.9 fL (7.4-10.4); MONO % 7.5 %; NEUT % 79.3 %; PLATELET COUNT 180 K/uL (130-400); RED BLOOD COUNT 4.92 M/uL (4.7-6.1); WHITE BLOOD COUNT 9.54 K/uL (4.8-10.8)
[2016-06-01 06:28] LABS: BUN/CREATININE RATIO 13.3 (10-20); CREATININE 0.98 mg/dl (0.60-1.40)
[2016-06-01 06:56] VITALS: BP 141/85; PULSE 61; TEMP 36.7; O2SAT 93
--- NOTE | 2016-06-01 07:43 | SURGERY PROGRESS NOTE ---
DATE: 06/01/2016 HISTORY OF PRESENT ILLNESS: Yobany is 2 postoperative day status post laparoscopic cholecystectomy, intraoperative cholangiogram. His white count this morning is down to about 9.54, hemoglobin is 13.7, BUN is 13, and creatinine 0.98. PHYSICAL EXAMINATION: His vitals showed a temperature of 37.5, pulse 61, respirations 16, blood pressure 144/83, and O2 sats 95 on room air. I\T\O, he had about 1500 mL of urine yesterday. Poli drainage has only been 15, is serosanguineous and nonbilious. The abdomen is benign. ASSESSMENT AND PLAN: The patient is tolerating a diet. We appreciate urology consultation yesterday. From my point of view, the patient can be tentatively discharged at the decision of the medical service. I would like probably send him home on some p.o. antibiotics for another 5 days due to the severity of the cholecystitis. The cultures so far on the gallbladder negative. He did have an alpha strep non-enterococcus on a urine clean catch on 05/29/2016.
--- NOTE | 2016-06-01 08:02 | Progress Note ---
Subjective Date of Service: Jun 01, 2016. Subjective Pt evaluation today including: conversation w/ patient, chart review, lab review Voiding: pruett catheter in place (patent clear, yellow urine ) 70 yo male with post-op incomplete bladder emptying. Pt reports he is feeling better this morning. Denies n/v. + flatus. Problem List Medical Problems: (1) Leukocytosis Status: Acute (2) Precordial chest pain Status: Acute (3) Urinary retention Status: Acute Review of Systems Constitutional: No chills, No fever Respiratory: No shortness of breath Cardiac: No chest pain Abdomen: + pain (incisional pain ), No nausea, No vomiting Male : No hematuria Heme: No abnormal bleeding/bruising Objective Vital Signs Date Time Temp Pulse Resp B/P Pulse Ox O2 Delivery O2 Flow Rate FiO2 06/01/16 06:56 36.7 61 18 141/85 93 Room Air 05/31/16 23:51 61 91 05/31/16 23:20 37.5 57 16 144/83 95 CPAP 05/31/16 23:10 Room Air CPAP 05/31/16 20:45 58 134/82 05/31/16 17:00 93 Room Air CPAP 05/31/16 17:00 36.7 64 18 127/81 93 Room Air 05/31/16 16:00 Room Air 05/31/16 15:50 36.4 59 20 132/78 96 Room Air 05/31/16 12:00 Room Air 05/31/16 11:14 37.0 61 18 137/79 92 05/31/16 08:00 Room Air 05/31/16 08:00 94 Room Air Physical Exam General Appearance: no apparent distress, + obese Eyes: normal inspection ENT: hearing grossly normal Neck: no JVD Respiratory/Chest: no respiratory distress, no accessory muscle use Cardiovascular: no JVD Extremities: normal inspection Neurologic/Psychiatric: alert, normal mood/affect, oriented x 3 Skin: normal color Laboratory Results Last 24 Hours Test 06/01/16 05:35 White Blood Count 9.54 K/uL Red Blood Count 4.92 M/uL Hemoglobin 13.7 g/dL Hematocrit 41.3 % Mean Corpuscular Volume 83.9 fL Mean Corpuscular Hemoglobin 27.8 pg Mean Corpuscular Hemoglobin Concent 33.2 g/dl Platelet Count 180 K/uL Mean Platelet Volume 9.9 fL Neutrophils (%) (Auto) 79.3 % Lymphocytes (%) (Auto) 12.2 % Monocytes (%) (Auto) 7.5 % Eosinophils (%) (Auto) 0.6 % Basophils (%) (Auto) 0.2 % Neutrophils # (Auto) 7.56 K/uL Lymphocytes # (Auto) 1.16 K/uL Monocytes # (Auto) 0.72 K/uL Eosinophils # (Auto) 0.06 K/uL Basophils # (Auto) 0.02 K/uL RDW Standard Deviation 42.6 fL RDW Coefficient of Variation 13.8 % Immature Granulocyte % (Auto) 0.2 % Immature Granulocyte # (Auto) 0.02 K/uL Sodium Level 141 mmol/L Potassium Level 4.0 mmol/L Chloride Level 107 mmol/L Carbon Dioxide Level 24 mmol/L Anion Gap 10.0 mmol/L Blood Urea Nitrogen 13 mg/dl Creatinine 0.98 mg/dl Est Creatinine Clear Calc Drug Dose 76.9 ml/min Estimated GFR () 90.8 Estimated GFR (Non- 78.4 BUN/Creatinine Ratio 13.3 Random Glucose 93 mg/dl Calcium Level 9.0 mg/dl Assessment and Plan A/P: BPH, incomplete bladder emptying AFVSS. Will leave pruett in place for now. Trial of void tomorrow morning prior to discharge home. Continue Flomax and finasteride. Recommend f/u with a urologist in 1-2 weeks after discharge for a PVR. [facility] Will continue to follow along with primary service.
[2016-06-01] MEDS: CARVEDILOL 6.25 MG TAB PO SCH ×2 (08:38→21:33)
[2016-06-01] MEDS: PANTOprazole SOD 40 MG TAB PO SCH (08:38)
[2016-06-01] MEDS: ASPIRIN 81 MG CHEW PO SCH (08:39)
[2016-06-01] MEDS: POTASSIUM CHLORIDE 20 MEQ TABCR PO SCH ×2 (08:39→21:34)
[2016-06-01] MEDS: FINASTERIDE 5 MG TAB PO SCH (08:39)
[2016-06-01] MEDS: CYANOCOBALAMIN 500 MCG TAB (VIT B-12) PO SCH ×2 (08:39→21:33)
[2016-06-01 11:27] VITALS: BP 139/76; PULSE 63; TEMP 36.7; O2SAT 94
--- NOTE | 2016-06-01 14:47 | Medical Consult ---
Consultation Note Consultation Note No consult done. [facility] 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 No treatment needed unless he has symptoms of mesenteric ischemia. If needed may need open repair. Please call with questions
[2016-06-01 15:51] VITALS: BP 174/91; PULSE 69; TEMP 37; O2SAT 93
[2016-06-01 16:56] VITALS: BP 152/93
--- NOTE | 2016-06-01 20:37 | Progress Note ---
Medicine Progress Note Date & Time of Visit: Jun 01, 2016 at 18:15. Subjective Feeling improved today but still has some nausea after eating. Talked about possible reflux and states that he took Omeprazole in the past but is off it now because he thought he was taking too many meds Offered it to him tonight, but he did not respond after several attempts at asking him Pain improved Constipation present-drinking prune juice Denies pelvic pressure or UTI symptoms- asks for Pruett out Objective Last 8 Hrs Date Time Temp Pulse Resp B/P Pulse Ox O2 Delivery O2 Flow Rate FiO2 06/01/16 16:56 152/93 06/01/16 16:00 Room Air 06/01/16 15:51 37.0 69 16 174/91 93 Room Air 06/01/16 11:27 36.7 63 17 139/76 94 Room Air 06/01/16 11:15 Room Air Physical Exam: GEN: WNWD, NAD, alert and appropriate but appears very forgetful and takes alot of time finding his words HEENT: NC/AT, normal sclerae CARDIO: reg rate, S1/2 heard without m/g/r LUNGS: CTA bilaterally, no crackles, rales or wheezes, good diaphragmatic excursion, diminished breath sounds ABD: +BS, soft, non-tender, sore around incision sites, non-distended but protuberant, MANUEL drain in place with serosanguinous drainage EXTREMITY: no LE swelling or edema, extremities are warm and well-perfused NEURO: CN 2-12 grossly intact MUSC: moves all extremities equally, no gross focal deficits. SKIN: warm and dry and multiple well-healing, non-draining incision sites on abdomen Laboratory Results: Last 24 Hours Test 06/01/16 05:35 White Blood Count 9.54 K/uL Red Blood Count 4.92 M/uL Hemoglobin 13.7 g/dL Hematocrit 41.3 % Mean Corpuscular Volume 83.9 fL Mean Corpuscular Hemoglobin 27.8 pg Mean Corpuscular Hemoglobin Concent 33.2 g/dl Platelet Count 180 K/uL Mean Platelet Volume 9.9 fL Neutrophils (%) (Auto) 79.3 % Lymphocytes (%) (Auto) 12.2 % Monocytes (%) (Auto) 7.5 % Eosinophils (%) (Auto) 0.6 % Basophils (%) (Auto) 0.2 % Neutrophils # (Auto) 7.56 K/uL Lymphocytes # (Auto) 1.16 K/uL Monocytes # (Auto) 0.72 K/uL Eosinophils # (Auto) 0.06 K/uL Basophils # (Auto) 0.02 K/uL RDW Standard Deviation 42.6 fL RDW Coefficient of Variation 13.8 % Immature Granulocyte % (Auto) 0.2 % Immature Granulocyte # (Auto) 0.02 K/uL Sodium Level 141 mmol/L Potassium Level 4.0 mmol/L Chloride Level 107 mmol/L Carbon Dioxide Level 24 mmol/L Anion Gap 10.0 mmol/L Blood Urea Nitrogen 13 mg/dl Creatinine 0.98 mg/dl Est Creatinine Clear Calc Drug Dose 76.9 ml/min Estimated GFR () 90.8 Estimated GFR (Non- 78.4 BUN/Creatinine Ratio 13.3 Random Glucose 93 mg/dl Calcium Level 9.0 mg/dl Assessment & Plan 70 year old male presents to the ED complaining of RUQ pain, CT chest consistent with cholecystitis s/p lap valerie on 05/30 ACUTE CHOLECYSTITIS -POD#2 lap valerie--recovering well -tolerating PO -no BM-drinking prune juice -RUQ is sore-pain controlled -leukocytosis resolved -blood cultures negative -switching Zosyn to Levaquin/Flagyl PO x 5 days -cont incentive spirometer HYPERTENSION -BP controlled, cont current management -postop pain control as needed -continue Coreg BID -serial Blair were performed and negative -CTA chest negative for aortic dissection on admission URINARY RETENTION -Urology following -DC pruett tonight--pt leaving im am, want to ensure voiding without issue, no reason for Pruett at this time, pt wants it out -has BPH and on Finasteride and Tamsulosin-cont these -UCx reveals alpha-strep, pt asymptomatic. Abx above should cover this CAD S/P CABG -continue BB -ASA restarted by Cardiology -gets care at [facility] -added statin at this time for medical management CAD (Lipitor 20mg PO qHS) H/O POST-OP PAROXYSMAL AFIB WITHOUT RECURRENCE -rate controlled on Coreg -not on anticoagulation --h/o coumadin but off it 2/2 fatigue; ASA for stroke risk reduction BPH -continue Flomax, Proscar -f/u with Urology as outpatient in 1-2 weeks. LUNG NODULE -incidental finding -followup with PCP SUPERIOR MESENTERIC ARTERY STENOSIS -high grade, on CTA -per Vas Surgery, no consult performed. Pt states he only wants [facility] be [facility] a [facility]. -recommend outpatient followup JESS-cont nightly CPAP DVT PROPHYLAXIS: Lovenox/cont SCDs Full Code DO Jay Jay Lynch[facility] Hospitalist Consultants: Gen Surg, Cardiology, Urology Current Inpatient Medications: Current Inpatient Medications Medications (Trade) Dose Ordered Sig/Michael Route Start Time Stop Time Status Last Admin Dose Admin Ioversol (Optiray 320) 125 ml UD PRN IV 05/29/16 16:00 06/02/16 15:59 Nitroglycerin (Nitrostat Tab) 0.4 mg UD PRN SL 05/29/16 18:15 06/28/16 18:14 Piperacillin Sod/ Tazobactam Sod (Consult) 1 ea UD PRN N/A 05/29/16 18:45 06/28/16 18:44 Carvedilol (Coreg Tab) 3.125 mg BID PO 05/29/16 21:00 06/28/16 20:59 06/01/16 08:38 3.125 MG Cyanocobalamin (Vitamin B-12 Tab) 500 mcg BID PO 05/29/16 21:00 06/28/16 20:59 06/01/16 08:39 500 MCG Finasteride (Proscar Tab) 5 mg QAM PO 05/30/16 09:00 06/29/16 08:59 06/01/16 08:39 5 MG Potassium Chloride (Klor-Con Tab) 20 meq BID PO 05/29/16 21:00 06/28/16 20:59 06/01/16 08:39 20 MEQ Tamsulosin HCl (Flomax Cap) 0.8 mg QPM PO 05/29/16 21:00 06/28/16 20:59 05/31/16 20:50 0.8 MG Hydralazine HCl (HydrALAZINE INJ) 10 mg Q6H PRN IV. 05/29/16 19:00 06/28/16 18:59 06/01/16 16:16 10 MG Oxycodone/ Acetaminophen (Percocet 5-325mg Tab) 2 tab Q4H PRN PO 05/30/16 15:15 06/13/16 15:14 Morphine Sulfate (MoRPHine SULFATE INJ) 4 mg Q1H PRN IV 05/30/16 15:15 06/13/16 15:14 Acetaminophen (Tylenol Tab) 650 mg Q6H PRN PO 05/30/16 23:45 06/29/16 23:44 Acetaminophen/ Hydrocodone Bitart (Chadron 5/325 Tab) 1 tab Q4H PRN PO 05/30/16 23:45 06/13/16 23:44 05/31/16 17:19 1 TAB Morphine Sulfate (MoRPHine SULFATE INJ) 3 mg Q3H PRN IV 05/30/16 23:45 06/13/16 23:44 05/31/16 08:17 3 MG Acetaminophen/ Hydrocodone Bitart (Chadron 5/325 Tab) 2 tab Q4H PRN PO 05/30/16 23:45 06/13/16 23:44 Morphine Sulfate (MoRPHine SULFATE INJ) 5 mg Q3H PRN IV 05/30/16 23:45 06/13/16 23:44 Ondansetron HCl (Zofran Inj) 4 mg Q6H PRN IV 05/30/16 23:45 06/29/16 23:44 Pantoprazole Sodium 40 mg 40 mg QAM PO 05/31/16 09:00 06/30/16 08:59 06/01/16 08:38 40 MG Piperacillin Sod/ Tazobactam Sod/ Dextrose (Zosyn Iv/D5 100ml) 115 ml @ 28.75 mls/ hr Q8H IV 05/31/16 16:00 06/08/16 00:00 06/01/16 16:14 28.75 MLS/HR Aspirin (Aspirin Chew) 81 mg DAILY PO 06/01/16 09:00 07/01/16 08:59 06/01/16 08:39 81 MG Atorvastatin Calcium (Lipitor Tab) 20 mg HS PO 05/31/16 21:00 06/30/16 20:59 05/31/16 20:50 20 MG Menthol (Nice Ashwini) 1 ashwini PRN PRN PO 05/31/16 19:45 06/30/16 19:44
[2016-06-01 21:31] VITALS: BP 150/98; PULSE 68
[2016-06-01] MEDS: ATORVASTATIN 20 MG TAB PO SCH (21:33)
[2016-06-01] MEDS: TAMSULOSIN HCL 0.4 MG CAP PO SCH (21:34)
[2016-06-01] MEDS: LEVOFLOXACIN 750 MG TAB PO SCH (21:35)
[2016-06-01] MEDS: METRONIDAZOLE 500 MG TAB PO SCH (21:35)
[2016-06-01 23:17] VITALS: BP 156/99; PULSE 76; TEMP 37.4; O2SAT 95
[2016-06-02] MEDS: METRONIDAZOLE 500 MG TAB PO SCH ×2 (06:40→14:04)
[2016-06-02 07:02] VITALS: BP 150/86; PULSE 67; TEMP 36.7; O2SAT 94
[2016-06-02 07:11] LABS: BASO % 0.2 %; BASO ABS # 0.02 K/uL (0-0.2); COMPLETE YES; EOS % 0.6 %; HEMATOCRIT 41.6 % (42-52); IG% 0.6 %; LYMPH ABS # 1.05 K/uL (1.2-3.4); MEAN CELL VOLUME 82.9 fL (80-100); MEAN CORPUSCULAR HEMOGLOBIN 28.1 pg (25-34); MEAN CORPUSCULAR HGB CONC 33.9 g/dl (32-36); MEAN PLATELET VOLUME 9.7 fL (7.4-10.4); MONO % 8.9 %; NEUT % 78.7 %; PLATELET COUNT 209 K/uL (130-400); RED BLOOD COUNT 5.02 M/uL (4.7-6.1); WHITE BLOOD COUNT 9.56 K/uL (4.8-10.8)
--- NOTE | 2016-06-02 07:27 | SURGERY PROGRESS NOTE ---
DATE: 06/02/2016 HISTORY OF PRESENT ILLNESS: Yobany is third postoperative day status post a laparoscopic cholecystectomy, intraoperative cholangiogram for acute necrotizing cholecystitis. He is resting comfortably. He is having no real issue. He said the catheter came out. He voided and had some blood. PHYSICAL EXAMINATION: His last temperature was 37.4, pulse 76, respirations 16, blood pressure 159/99. I\T\O, he had 5000 out urine yesterday. He had 2 bowel movements. Kuldip-Lozano drain 35, it is serous, slightly sanguineous and nonbilious. LABORATORY DATA: Laboratory-negrete, his labs this morning are pending, but yesterday, his white count was 9.54 with a left shift. His chemistries few days ago was normal except for slight elevation of bilirubin as anticipated. ASSESSMENT AND PLAN: At this point, his belly is soft. From my point of view, the patient can be discharged. I would like to see him back in the office on Sunday. I will leave the drain until he comes back to the office on Sunday. If he is there over the weekend, we may be able to take the drain out prior to his discharge.
[2016-06-02 07:44] LABS: CALCIUM 9.2 mg/dl (8.5-10.1); CREATININE 0.9 mg/dl (0.60-1.40)
--- NOTE | 2016-06-02 07:48 | Progress Note ---
Subjective Date of Service: Jun 02, 2016. Subjective Pt evaluation today including: conversation w/ patient, chart review, lab review Voiding: no voiding problems 70 yo male with post-op UR. Burton catheter removed last evening. Pt reports he is voiding on his own without difficulty. He does report some gross hematuria with the first few voids, but this has since resolved. The pt also reports several BMs since catheter removal. Problem List Medical Problems: (1) Leukocytosis Status: Acute (2) Precordial chest pain Status: Acute (3) Urinary retention Status: Acute Review of Systems Constitutional: No chills, No fever Respiratory: No shortness of breath Cardiac: No chest pain Abdomen: No nausea, No pain, No vomiting Male : No hematuria Heme: No abnormal bleeding/bruising Objective Vital Signs Date Time Temp Pulse Resp B/P Pulse Ox O2 Delivery O2 Flow Rate FiO2 06/02/16 07:02 36.7 67 17 150/86 94 Room Air 06/01/16 23:17 37.4 76 16 156/99 95 Room Air 06/01/16 21:31 68 150/98 06/01/16 21:00 Room Air 06/01/16 16:56 152/93 06/01/16 16:00 Room Air 06/01/16 15:51 37.0 69 16 174/91 93 Room Air 06/01/16 11:27 36.7 63 17 139/76 94 Room Air 06/01/16 11:15 Room Air 06/01/16 08:00 Room Air Physical Exam General Appearance: no apparent distress, + obese Eyes: normal inspection ENT: hearing grossly normal Neck: no JVD Respiratory/Chest: no respiratory distress, no accessory muscle use Cardiovascular: no JVD Extremities: normal inspection Neurologic/Psychiatric: alert, normal mood/affect, oriented x 3 Skin: normal color Laboratory Results Last 24 Hours Test 06/02/16 06:41 White Blood Count 9.56 K/uL Red Blood Count 5.02 M/uL Hemoglobin 14.1 g/dL Hematocrit 41.6 % Mean Corpuscular Volume 82.9 fL Mean Corpuscular Hemoglobin 28.1 pg Mean Corpuscular Hemoglobin Concent 33.9 g/dl Platelet Count 209 K/uL Mean Platelet Volume 9.7 fL Neutrophils (%) (Auto) 78.7 % Lymphocytes (%) (Auto) 11.0 % Monocytes (%) (Auto) 8.9 % Eosinophils (%) (Auto) 0.6 % Basophils (%) (Auto) 0.2 % Neutrophils # (Auto) 7.52 K/uL Lymphocytes # (Auto) 1.05 K/uL Monocytes # (Auto) 0.85 K/uL Eosinophils # (Auto) 0.06 K/uL Basophils # (Auto) 0.02 K/uL RDW Standard Deviation 41.5 fL RDW Coefficient of Variation 13.8 % Immature Granulocyte % (Auto) 0.6 % Immature Granulocyte # (Auto) 0.06 K/uL Assessment and Plan A/P: BPH, incomplete bladder emptying AFVSS. Pt voiding well since catheter removed. Continue Flomax and finasteride. Will order a urine cytology while inpatient for gross hematuria. Would recommend outpatient cysto for further evaluation as well. The pt prefers to f/ u with [place] urologist. I recommend he f/u there in 1-2 weeks for a PVR and possible cysto. Would recommend scheduling this appt for him prior to d/c from the hospital. Pt OK for d/c home from [facility]. Recall PRN issues. Thanks for allowing us to participate in this pt's care.
[2016-06-02] MEDS: POTASSIUM CHLORIDE 20 MEQ TABCR PO SCH (08:42)
[2016-06-02] MEDS: PANTOprazole SOD 40 MG TAB PO SCH (08:42)
[2016-06-02] MEDS: CARVEDILOL 6.25 MG TAB PO SCH (08:42)
[2016-06-02] MEDS: CYANOCOBALAMIN 500 MCG TAB (VIT B-12) PO SCH (08:42)
[2016-06-02] MEDS: FINASTERIDE 5 MG TAB PO SCH (08:42)
[2016-06-02] MEDS: ASPIRIN 81 MG CHEW PO SCH (08:48)
[2016-06-02] MEDS: LEVOFLOXACIN 750 MG TAB PO SCH (11:29)
[2016-06-02] MEDS ORDERED: MTR500 PO (14:25)
[2016-06-02] MEDS ORDERED: LVQ750 PO (14:25)
[2016-06-02] MEDS ORDERED: LPT20 PO (14:25)
--- NOTE | 2016-06-02 14:33 | Discharge Instructions ---
Discharge Instructions Admission Reason for Admission: Cholecystitis,Hypertensive Urgency Discharge Discharge Diagnosis / Problem: Acute cholecystitis, Hypertension, Urinary retention and Hematuria Discharge Goals Goal(s): Prevent Disease Progression Activity Recommendations Activity Limitations: as noted below (per surgeon's instructions) . Instructions / Follow-Up Instructions / Follow-Up Please take all medications as instructed. Please follow-up in Dr. Montalvo's office on Sunday, 06/05 for post-operative follow-up and to remove your drain. You will have Home Health nursing come by you home over the weekend to manage this. Follow with all other surgical activity restrictions as instructed by Dr. Montalvo's team. You had an issue with urine retention and subsequent blood in your urine. This requires attention by a Urologist within the next2-3 weeks to ensure full evaluation with consideration for outpatient cystoscopy. Please ensure you have [place] follow-up for this. 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 This requires follow- up with a Vascular Surgeon. You will also need a follow-up with your primary care provider at the where you receive care. This should take place within one week of discharge to ensure things are going well and you are getting to the specialists who need to evaluate you. Please contact a [facility] Hospitalist below if you need assistance with this. It was a pleasure taking care of you! Call if you have any questions or problems. You can reach a [facility] on [facility] at [facility] 24 hours a day by calling [phone]. Take care of yourself. Dionne Coon, [facility] Current Hospital Diet Patient's current hospital diet: AHA Diet (Heart Healthy) Discharge Diet Recommended Diet: AHA Diet (Heart Healthy) Procedures Procedures Performed: Laparoscopic Cholecystectomy with Cholangiogram Pending Studies Studies pending at discharge: yes List of pending studies: Urine cytology Medical Emergencies . Who to Call and When: Medical Emergencies: If at any time you feel your situation is an emergency, please call 911 immediately. . Non-Emergent Contact Non-Emergency issues call your: Primary Care Provider . . "Provider Documentation" section prepared by Dionne Coon. VTE Core Measure Inpt VTE Proph given/why not?: Enoxaparin (Lovenox)SQ
[2016-06-02 15:17] VITALS: BP 165/97; PULSE 67; TEMP 36.5; O2SAT 95
[2016-06-02 15:45] VITALS: BP 165/97; PULSE 67; TEMP 36.5; O2SAT 95
--- NOTE | 2016-06-08 16:38 | Discharge Summary ---
Discharge Summary Admission Date: May 29, 2016 at 18:16 Discharge Date: Jun 02, 2016 Discharge Disposition: Home with services Principal Diagnosis: Acute cholecystitis s/p lap valerie on 05/30/16 Hypertension Urinary retention in setting of BPH Chronic CAD s.o CABG h/o post-operative PAF without recurrence-intolerant to Coumadin Lung nodule High grade superior mesenteric artery stenosis JESS Obesity Procedures: Lap valerie 05/30/16 Vaccinations: None Consultations: Gen Surg, Cardiology, Urology Pending Studies/Follow-Up: see instruction sheet Medication Reconciliation New Medications: Atorvastatin (Atorvastatin Calcium) 20 Mg Tab 20 MG PO HS for 30 Days, #30 TAB Levofloxacin (Levofloxacin) 750 Mg Tab 750 MG PO DAILY@11 for 4 Days, #4 TAB Metronidazole (Metronidazole) 500 Mg Tab 500 MG PO Q8 for 4 Days, #12 TAB Continued Medications: Aspirin (Aspirin Ec) 81 Mg Tab 81 MG PO DAILY Carvedilol (Coreg) 6.25 Mg Tab 0.5 TAB PO BID, TAB Cyanocobalamin (Vitamin B-12) 500 Mcg Tab 500 MCG PO BID, TAB Finasteride (Proscar) 5 Mg Tab 5 MG PO QAM, TAB Potassium Ext Rel (Klor-Con) 20 Meq Tabcr 20 MEQ PO BID, TAB Tamsulosin HCl (Tamsulosin HCl) 0.4 Mg Cap 0.8 MG PO QPM Admission Information HPI (per Admitting provider): Patient seen and examined. 70 year old male with PMHx of CAD s/p CABG presents to the ED complaining of abdominal pain since last night. Patient is a poor historian but reports he has been eating differently to try to loose weight, last night he late ate at night but just a fruit bar he said then later that night he started with a gnawing feeling in his RUQ with associated nausea He rates the pain as a 5/10. He states the pain migrated across his abdomen and into his chest and then started to radiate into his back. He states that this caused him to come to the ED. He denies fevers, chills, URI symptoms, SOB, palpitations, vomiting, diarrhea, dysuria, calf pain and edema. Reports he has not had similar symptoms in the past. He states he gets his medical care at the local [place] center. In the ED patient is hypertensive, VS are otherwise stable, wbc count is 17K, CTA is negative for aortic dissection but shows gallbladder disease. ED spoke with surgery who requested general medicine admission. Patient is resting comfortably. Patient will be admitted for further workup and treatment. Physical Exam (per Admitting): General Appearance: + pertinent finding (WD/WN 70 year old male lying in bed in NAD ) Head: normocephalic, atraumatic Eyes: PERRL, sclerae normal ENT: hearing grossly normal, pharynx normal Neck: supple, no JVD Respiratory/Chest: chest non-tender, lungs clear, normal breath sounds, no respiratory distress, no accessory muscle use Cardiovascular: regular rate, rhythm, no edema, no gallop, no JVD, no murmur , normal peripheral pulses Abdomen/GI: normal bowel sounds, soft, + tenderness (RUQ, +mchugh's sign ) Back: normal inspection, no muscle spasm Extremities/Musculoskelatal: no calf tenderness, normal capillary refill, no pedal edema Neurologic/Psych: alert, oriented x 3, + pertinent finding (no focal deficits noted on gross exam ) Skin: normal color, warm/dry Lymphatic: no adenopathy Hospital Course 70 year old male presents to the ED complaining of RUQ pain, CT chest consistent with cholecystitis s/p lap valerie on 05/30 ACUTE CHOLECYSTITIS -s/p lap valerie--recovering well -tolerating PO -no BM-drinking prune juice -RUQ is sore-pain controlled -leukocytosis resolved -blood cultures negative -switching Zosyn to Levaquin/Flagyl PO x 5 days -cont incentive spirometer HYPERTENSION -BP controlled, cont current management -postop pain control as needed -continue Coreg BID -serial Blair were performed and negative -CTA chest negative for aortic dissection on admission URINARY RETENTION -Urology following -DC pruett tonight--pt leaving im am, want to ensure voiding without issue, no reason for Pruett at this time, pt wants it out -has BPH and on Finasteride and Tamsulosin-cont these -UCx reveals alpha-strep, pt asymptomatic. Abx above should cover this CAD S/P CABG -continue BB -ASA restarted by Cardiology -gets care at [facility] -added statin at this time for medical management CAD (Lipitor 20mg PO qHS) H/O POST-OP PAROXYSMAL AFIB WITHOUT RECURRENCE -rate controlled on Coreg -not on anticoagulation --h/o coumadin but off it 2/2 fatigue; ASA for stroke risk reduction BPH -continue Flomax, Proscar -f/u with Urology as outpatient in 1-2 weeks. LUNG NODULE -incidental finding -followup with PCP SUPERIOR MESENTERIC ARTERY STENOSIS -high grade, on CTA -per [facility] Surgery, no consult performed. Pt states he only wants to be seen by a [place] physician. -recommend outpatient followup JESS-cont nightly CPAP Physical exam on day of discharge was unremarkable aside from well-healing incision sites and some surrounding tenderness. His Pruett was removed and he was able to urinate on his own prior to discharge. He was afebrile and hemodynamically stable, tolerating PO and ambulating close to baseline. He was discharged home in stable condition with Home Health services to help take care of MANUEL drain and close follow-up scheduled for the following Sun (discharged on Sun) with Dr Montalvo (Gen Surgeon) for post-op appointment for MANUEL drain removal. Total time spent on discharge = 60 minutes This includes examination of the patient, discharge planning, medication reconciliation, and communication with other providers. Discharge Instructions Discharge Instructions Admission Reason for Admission: Cholecystitis,Hypertensive Urgency Discharge Discharge Diagnosis / Problem: Acute cholecystitis, Hypertension, Urinary retention and Hematuria Discharge Goals Goal(s): Prevent Disease Progression Activity Recommendations Activity Limitations: as noted below (per surgeon's instructions) . Instructions / Follow-Up Instructions / Follow-Up Please take all medications as instructed. Please follow-up in Dr. Montalvo's office on Sunday, 06/05 for post-operative follow-up and to remove your drain. You will have Home Health nursing come by you home over the weekend to manage this. Follow with all other surgical activity restrictions as instructed by Dr. Montalvo's team. You had an issue with urine retention and subsequent blood in your urine. This requires attention by a Urologist within the next2-3 weeks to ensure full evaluation with consideration for outpatient cystoscopy. Please ensure you have [facility] follow[facility]. 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 This requires follow- up with a Vascular Surgeon. You will also need a follow-up with your primary care provider at the [facility] where you receive care. This should take place within one week of discharge to ensure things are going well and you are getting to the specialists who need to evaluate you. Please [facility] a [facility] if you need assistance with this. It was a pleasure taking care of you! Call if you have any questions or problems. You can reach a [facility] Hospitalist on duty at [facility] 24 hours a day by calling [phone]. Take care of yourself. Dionne Coon, DO [facility] Centerist Additional Copies To Angel Courtney M.D.; Frida Alvarez C.R.N.P.
== END 2016-06-02 17:15 | disposition home health service (06) | DRG 418 ==
LOC: ENRESERVDT → ENRESERVTM → C.EDB 14:12 → C.2E 18:16 → EDBEDREQSVC 05-31 15:40 → C.MSW 05-31 17:05
PROVIDERS: ADMIT Internal Medicine; ATTEND Hospitalist
PROC: BF131ZZ Fluoroscopy of Gallbladder and Bile Ducts using Low Osmolar Contrast (ICD-10-PCS; 2016-05-30)
PROC: 0FT44ZZ Resection of Gallbladder, Percutaneous Endoscopic Approach (ICD-10-PCS; principal; 2016-05-30 12:30)
DX: K81.0 Acute cholecystitis (principal); N39.0 Urinary tract infection, site not specified; K55.1 Chronic vascular disorders of intestine; I16.0 Hypertensive urgency; I25.10 Atherosclerotic heart disease of native coronary artery without angina pectoris; Z95.1 Presence of aortocoronary bypass graft; Z79.82 Long term (current) use of aspirin; Z79.899 Other long term (current) drug therapy; I10 Essential (primary) hypertension; N40.1 Benign prostatic hyperplasia with lower urinary tract symptoms; R91.1 Solitary pulmonary nodule; E66.9 Obesity, unspecified; Z68.33 Body mass index [BMI] 33.0-33.9, adult; M19.90 Unspecified osteoarthritis, unspecified site; M72.2 Plantar fascial fibromatosis; I48.0 Paroxysmal atrial fibrillation; E78.5 Hyperlipidemia, unspecified; R33.9 Retention of urine, unspecified; Z87.891 Personal history of nicotine dependence; R35.0 Frequency of micturition; R35.1 Nocturia; G47.33 Obstructive sleep apnea (adult) (pediatric)